=== PATIENT | female | born 1950 | race Caucasian/White ===

== ENCOUNTER → 2016-08-13 | Outpatient (CLI) | payer OTHER ==
[~2016-08-13] VITALS: Ht 160 cm; Wt 58.1 kg
[~2016-08-13] MED LIST: ABILIFY15 MG PO; ALLER-EASE180 MG PO; AMLODIPINE BESY10 MG PO; ASPIRIN EC81 M1 PO; BACTROBAN NASAL1 GM; CALCIUM 600 +1 EA11; CALCIUM 600 +1 EAC1 PO; CALCIUM 600 MG1 EAC3 PO; DEPAKOTE ER500 MG PO; DESYREL50 MG PO; FLEXERIL PO; FLONASE 0.05%50 MCG; IBUPROFEN 600600 M1 PO; LEVOTHYROXINE0.05 MG PO; LEXAPRO20 MG PO; LUNESTA1 MG; LUNESTA3 MG PO; MEDROLDOSEPACK PO; MELOXICAM7.5 MG PO; MYRBETRIQ25 MG PO; NABUMETONE 500500 M1 PO; NEXIUM40 MG PO; OXYCODONE HCL15 MG PO; PHENERGAN 25 MG25 M1 PO; PRENATAL PLUS1 EAC4 PO; PRENATAL PO; PROAIR HFA8.5 GM IH; PROTONIX40 M1 PO; ROXICODONE15 M1 PO; TIZANIDINE HCL4 M1 PO; TRUSOPT5 ML OP; VESICARE 5 MG TA5 M1 PO; VESICARE10 M1 PO; VISTARIL PO; VOLTAREN GEL 1100 G1 TOP; VOLTAREN GEL 1100 GM TOP; WELLBUTRIN SR150 MG PO; WELLBUTRIN XL150 M1 PO; WELLBUTRIN XL150 MG PO; ZOFRAN4 MG PO
--- NOTE | ~2016-08-13 | HPC ---
[facility] [place] [address] PAIN MANAGEMENT CONSULTATION Name: NAIMA ROCHE Room #: REG [facility].#: [id number] Admission: 08/13/16 Attend Phys: Toan Solorzano DO Discharge: Date of : 50 Report #: [id number] THIS REPORT FOR: //name// CC: Toan Chadwick MD DATE OF SERVICE: 08/13/2016 DATE OF SERVICE: 08/13/2016. CHIEF COMPLAINT: Low back pain, bilateral lower extremity pain. HISTORY OF PRESENT ILLNESS: As you know, patient is a very pleasant 65-year-old female who returns today in followup visit reporting pain scores of approximately 6/10. Stated pain is exacerbated with standing and cooking, lying down, improves with medications and rest. The patient provides a significant history of multiple deaths in the family of late. Most recent was a brother who last Friday. She is somewhat depressed and believes this is exacerbating her symptoms to some degree. She returns today in followup visit, denying side effects to medication, wishing to continue therapy. As you are aware, we have reduced the patient's dose from last visit to comply more consistently with the CDC guidelines. The patient has noted really no change in her pain levels. She returns today requesting refill on medication. ALLERGIES: BENADRYL, TETANUS, ALLOPURINOL. CURRENT MEDICATIONS: Oxycodone 15 mg every 6 hours p.r.n. for pain, bupropion 150 mg once a day, Trusopt one drop each eye per day, omeprazole 40 mg per day, levothyroxine 50 mcg per day, promethazine 25 mg 3 times a day, tizanidine 4 mg 3 times a day as needed, escitalopram 20 mg per day, calcium carbonate 1 tab per day, amlodipine 10 mg per day, Depakote 500 mg once a day, albuterol 2 puffs q. 4 hours, Abilify 15 mg per day, aspirin 81 mg per day. SOCIAL HISTORY: The patient denies tobacco, alcohol, IV or illicit drug use. She is living independently. She is unaccompanied today. IMAGING: No new imaging available. PHYSICAL EXAMINATION: VITAL SIGNS: Blood pressure 166/81, pulse 86, respiratory rate 20, unlabored. The patient is 100% on room air. Height 5 feet 3 inches tall, weight 128 pounds, BMI calculated 22.7. GENERAL: Well developed, well nourished, well hydrated 65-year-old female, appearing her stated age, placing current pain score 6/10. HEENT: Normocephalic, atraumatic. Pupils equal, round, reactive to light. [facility] [address] [place] [address] PAIN MANAGEMENT CONSULTATION Name: NAIMA ROCHE Room #: REG [facility]#: [id number] Admission: 08/13/16 Attend Phys: Toan Solorzano DO Discharge: Date of : 50 Report #: [id number] Extraocular muscles are intact. Upper and lower dentures in place. EXTREMITIES: Show no clubbing, no cyanosis, no edema. MUSCULOSKELETAL: Lower extremity strength equal and symmetrical 5/5. Seated straight leg raising negative. Supine straight leg raising negative. Roshan's test negative. Modified Gaenslen's positive for axial back. ASSESSMENT: 1. Lumbosacral spondylosis without radiculopathy. 2. Lumbar degeneration. 3. Myofascial pain. 4. Chronic intractable pain. PLAN: 1. The patient has returned today in followup visit indicating pain levels of about 6/10. She has noted no real major change in her pain levels with the reduction in medication therapy. She wishes to continue current medical therapy at this time. She is within the compliance of the CDC guidelines of 90 morphine equivalents at this time. I recommend she continue this therapy and we will adjust as necessary. 2. The patient was provided prescription oxycodone 15 mg dose 1 tab p.o. q. 6 hours p.r.n. for pain, #120, releases of today, 4 weeks from today, 8 weeks from today, 3 months' worth of medication. 3. The patient and I did have a long discussion about recent in her family. It is sad to see the patient is suffering so with the emotional issues. I believe that once she is through this grieving process, her pain will improve. We will be there to support throughout this time. We will see her back in 3 months or earlier if she needs to discuss further. By: 1610 [id number] Toan Solorzano, /nt
[2016-08-13 10:47] VITALS: BP 166/81
== END ==
LOC: PAIN 07:06
DX: M47.27 Other spondylosis with radiculopathy, lumbosacral region (principal); G31.89 Other specified degenerative diseases of nervous system; M79.1 Myalgia; G89.29 Other chronic pain; I10 Essential (primary) hypertension; Z87.891 Personal history of nicotine dependence; F32.89 Other specified depressive episodes

== ENCOUNTER → 2016-11-05 | Outpatient (CLI) | payer OTHER ==
[~2016-11-05] VITALS: Ht 160 cm; Wt 59.9 kg
[2016-11-05 10:45] VITALS: BP 151/78
== END | disposition home or self-care (01) ==
LOC: PAIN 07:14
DX: M51.36 Other intervertebral disc degeneration, lumbar region (principal); M47.27 Other spondylosis with radiculopathy, lumbosacral region; M79.1 Myalgia; G89.29 Other chronic pain; I10 Essential (primary) hypertension; K21.9 Gastro-esophageal reflux disease without esophagitis; E03.9 Hypothyroidism, unspecified; H40.89 Other specified glaucoma; F31.89 Other bipolar disorder; Z87.891 Personal history of nicotine dependence; Z98.890 Other specified postprocedural states; Z88.8 Allergy status to other drugs, medicaments and biological substances; Z79.899 Other long term (current) drug therapy

== ENCOUNTER → 2017-01-28 | Outpatient (CLI) | payer OTHER ==
[~2017-01-28] VITALS: Ht 160 cm; Wt 60.3 kg
[~2017-01-28] MED LIST changes: +LUMIGAN2.5 M1 OPHTHALMIC; +SIMBRINZA 1%-0.28 ML OPHTHALMIC
--- NOTE | ~2017-01-28 | HPC ---
[facility] [address] [place] [address] PAIN MANAGEMENT CONSULTATION Name: NAIMA ROCHE Room #: REG [facility]#: [id number] Admission: 01/28/17 Attend Phys: Toan Solorzano DO Discharge: Date of : 50 Report #: [id number] THIS REPORT FOR: //name// CC: Toan Chadwick MD DATE OF SERVICE: 01/28/2017 REFERRING PHYSICIAN: Kit Chadwick MD CHIEF COMPLAINT: Low back pain, bilateral lower extremity pain. HISTORY OF PRESENT ILLNESS: As you know, the patient is a very pleasant 66-year-old female who returns today in followup visit for medication management. The patient feels medications are working beneficially for pain control. She indicates pain today at a level of 8-9/10, states pain is exacerbated with standing, cooking, sitting and lying down, improves with medications. Despite this elevated pain level of 7-8/10, she believes medications are working beneficially and wishes to continue the therapy as currently prescribed. She returns for refill of medications for the next 3 months. ALLERGIES: BENADRYL, TETANUS, and ALLOPURINOL. CURRENT MEDICATIONS: See extensive list in chart. SOCIAL HISTORY: The patient denies tobacco, alcohol, IV or illicit drug use. She lives independently. She is unaccompanied today. IMAGING: No new imaging available. PHYSICAL EXAMINATION: VITAL SIGNS: Blood pressure 159/64, pulse 88, respiratory rate 20 and unlabored, the patient is 98% on room air, height 5 feet 3 inches tall, weight 133 pounds, and BMI calculated 23.6. GENERAL: Well-developed, well-nourished, well-hydrated 66-year-old female, appearing her stated age, she is placing current pain score at 7-8/10. HEENT: Normocephalic, atraumatic. Pupils are equal, round, and reactive to light. Extraocular muscles are intact. Sclerae nonicteric without injection. NEUROLOGIC: Cranial nerves 2-12 are grossly intact. Speech is fluent. The patient deemed a good historian. LUNGS: Clear. No wheeze, rhonchi, or rales. CARDIOVASCULAR: Regular. No appreciable gallop or rub. ABDOMEN: Soft, nontender, and nondistended. EXTREMITIES: Show no clubbing, no cyanosis, and no edema. [address] [address] PAIN MANAGEMENT CONSULTATION Name: NIAMA ROCHE Room #: REG [facility] Cele#: [id number] Admission: 01/28/17 Attend Phys: Toan Solorzano DO Discharge: Date of : 50 Report #: [id number] MUSCULOSKELETAL: Seated straight leg raising negative. Supine straight leg raising negative. Lilian's test negative. Modified Gaenslen's positive for axial low back pain. ASSESSMENT: 1. Lumbosacral spondylosis without radiculopathy. 2. Lumbar degeneration. 3. Myofascial pain. 4. Chronic intractable pain. PLAN: 1. The patient returns today in followup visit for continuation of medication therapy. The patient feels medications are working beneficially for pain control. The patient and I had a long discussion today about the use of her medications. She has been appropriate with the medications, she has not called for early refills, she has not requested increases in therapy. She has been very appropriate and states that her symptoms are improved significantly enough to where she can go about activities of daily living despite this level of 7-8/10 pain reported today. She returns today requesting refill on therapy. 2. The patient was provided a prescription of oxycodone 15 mg dose 1 tab p.o. q.6 hours p.r.n. for pain, I have given the patient #120, release dates of today, 4 weeks from today, 8 weeks from today, 3 months' worth of medication. 3. The patient will return to our clinic in 3 months for medication therapy and discuss other options for treatment if needed including interventional treatments and surgical options. <ELECTRONICALLY SIGNED> By: Toan Solorzano DO 01/29/17 0806 [id number] [id number] Toan Solorzano DO /nt
[2017-01-28 11:07] VITALS: BP 159/64
== END ==
LOC: PAIN 07:35
DX: M47.897 Other spondylosis, lumbosacral region (principal); M47.896 Other spondylosis, lumbar region; M79.1 Myalgia; G89.4 Chronic pain syndrome

== ENCOUNTER → 2017-04-22 | Outpatient (CLI) | payer OTHER ==
[~2017-04-22] VITALS: Ht 160 cm; Wt 58.3 kg
[~2017-04-22] MED LIST changes: +COZAAR 50 MG TA50 M2 PO; -LEVOTHYROXINE0.05 MG PO; +PERCOCET 7.5-31 EACH PO; +SIMBRINZA 1%-0.28 ML; +SYNTHROID50 MCG PO; +TERBINAFINE HC250 MG PO; +TRAVATAN Z2.5 ML OPHTHALMIC; +VESICARE 5 MG TA5 MG PO; +VYZULTA5 ML
--- NOTE | ~2017-04-22 | HPC ---
[facility] [address] [place] [address] PAIN MANAGEMENT CONSULTATION Name: NAIMA ROCHE Room #: REG [facility]#: [id number] Admission: 04/22/17 Attend Phys: Toan Solorzano DO Discharge: Date of : 50 Report #: [id number] THIS REPORT FOR: //name// CC: Toan Chadwick MD DATE OF SERVICE: 04/22/2017 REFERRING PHYSICIAN: Kit Chadwick MD CHIEF COMPLAINT: Low back pain, bilateral lower extremity pain. HISTORY OF PRESENT ILLNESS: As you know, the patient is a very pleasant 66-year-old female who returns today in followup visit for medication management. She indicates that she is doing better overall as she has recently received help from her insurer to gain an mental health assistant to help on daily activities at home. The patient has returned today in followup visit stating pain is a level of around 6/10, which is fairly typical for her. She states the pain is chronic in nature, throbbing in sensation, exacerbated with standing, cooking, sitting and lying down, improves with medications, heat, cold compresses and rest. She returns today in followup visit requesting refill of medications. ALLERGIES: BENADRYL, TETANUS, and ALLOPURINOL. CURRENT MEDICATIONS: See extensive list in chart. SOCIAL HISTORY: The patient denies tobacco, alcohol, IV or illicit drug use. She is living at a neighboring facility. She is unaccompanied today. IMAGING: No new imaging available. PHYSICAL EXAMINATION: VITAL SIGNS: Blood pressure 148/70, pulse 82, respiratory rate 16 and unlabored, the patient is 96% on room air, height 5 feet 3 inches tall, weight 128.6 pounds, and BMI calculated 22.8. GENERAL: Well-developed, well-nourished, well-hydrated 66-year-old female, she appears her stated age, placing current pain score at around 6/10. HEENT: Normocephalic, atraumatic. Pupils are equal, round, and reactive to light. Extraocular muscles are intact. EXTREMITIES: Show no clubbing, no cyanosis, and no edema. MUSCULOSKELETAL: Seated straight leg raising negative. Supine straight leg raising negative. Roshan's test negative. Modified Gaenslen's positive for axial low back pain. Gait, normal stance, slightly forward flexed lumbar spine, loss of lordotic curvature. Muscle bulk and tone equal and symmetrical in lower extremities. [address] [address] PAIN MANAGEMENT CONSULTATION Name: NAIMA ROCHE Room #: REG [facility]#: [id number] Admission: 04/22/17 Attend Phys: Toan Solorzano DO Discharge: Date of : 50 Report #: [id number] ASSESSMENT: 1. Lumbosacral spondylosis without radiculopathy. 2. Lumbar degeneration. 3. Myofascial pain. 4. Chronic intractable pain. PLAN: 1. The patient returns today in followup visit indicating good efficacy with medication management despite the fact that she is reporting pain score of 6/10. She states the 6/10 is fairly typical for her when she is on medications. When she is not on medications, this could be as high as 10/10. She returns today requesting refill on medications at current dosing. 2. The patient was provided a prescription of oxycodone IR 15 mg dose 1 tab every 6 hours p.r.n. for pain, I have provided #120, release dates of today, 4 weeks from today, 8 weeks from today, 3 months' worth of medication. 3. The patient was submitted to a buccal drug screen. The patient will undergo the screening today and can contact our clinic in approximately 1 week for the findings. We are using these random drug screens to monitor the patients as part of our monitoring program. The patient was also noted to have no concerning entries in [employer], the opioid tracking system in the [facility]. 4. The patient will return to our clinic in 3 months. <ELECTRONICALLY SIGNED> By: Toan Solorzano DO 04/23/17 0739 [id number] [id number] Toan Solorzano DO /nt
[2017-04-22 10:44] VITALS: BP 148/70
== END ==
LOC: PAIN 07:05
DX: M47.817 Spondylosis without myelopathy or radiculopathy, lumbosacral region (principal); M47.896 Other spondylosis, lumbar region; G89.29 Other chronic pain; M79.1 Myalgia

== ENCOUNTER → 2017-07-10 | Outpatient (CLI) | payer OTHER | LOC: ULTRA 05-26 13:10 | DX: I70.8 Atherosclerosis of other arteries (principal); R09.89 Other specified symptoms and signs involving the circulatory and respiratory systems ==

== ENCOUNTER → 2017-07-15 | Outpatient (CLI) | payer OTHER ==
[~2017-07-15] VITALS: Ht 160 cm; Wt 60.3 kg
[~2017-07-15] MED LIST changes: -PERCOCET 7.5-31 EACH PO; -SIMBRINZA 1%-0.28 ML; -VYZULTA5 ML
--- NOTE | ~2017-07-15 | HPC ---
[facility] [address] [place] [address] PAIN MANAGEMENT CONSULTATION Name: NAIMA ROCHE Room #: REG [facility]#: [id number] Admission: 07/15/17 Attend Phys: Toan Solorzano DO Discharge: Date of : 50 Report #: [id number] THIS REPORT FOR: //name// CC: Toan TIMMONS DATE OF SERVICE: 07/15/2017 REFERRING PHYSICIAN: Eulalio Liriano MD CHIEF COMPLAINT: Low back pain, bilateral lower extremity pain. HISTORY OF PRESENT ILLNESS: As you know, the patient is a very pleasant 66-year-old female who returns today in followup visit for medication management. The patient indicates pain level today of approximately 0/10. She indicates pain when present is exacerbated with standing, cooking, sitting and lying down, improves with medications. She describes the pain as chronic and throbbing in sensation. She returns today requesting refill on medication in hopes of continuing analgesic benefit. She is denying any side effects to the therapy and feels are working beneficially. She returns for 3 months' worth of medication. ALLERGIES: BENADRYL, TETANUS, ALLOPURINOL. CURRENT MEDICATIONS: See the extensive list in chart. SOCIAL HISTORY: The patient denies tobacco, alcohol, IV or illicit drug use. 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 She is unaccompanied today. IMAGING: No new imaging available. PQRS: The patient has known osteoarthritis. No rheumatoid arthritis. Pain intensity is listed at 0/10 today. She is not a fall risk, has not had a fall in the past 3 months. She is not on blood thinners. She does take medication for hypertension. She has been on opioids for greater than 6 months. She is at moderate risk for opioid abuse. FUNCTIONAL ASSESSMENT: Completed again today indicating moderate interference. PHYSICAL EXAMINATION: VITAL SIGNS: Blood pressure 136/73, pulse 78, respiratory rate 18, unlabored. The patient is 100% on room air. Height 5 feet 3 inch tall, weight 133 pounds, BMI calculated 23.6. [facility] [address] [address] PAIN MANAGEMENT CONSULTATION Name: MELCHORNAIMA L Room #: REG [facility]#: [id number] Admission: 07/15/17 Attend Phys: Tona Solorzano DO Discharge: Date of : 50 Report #: [id number] GENERAL: Well-developed, well-nourished, well-hydrated 66-year-old female, appears older than stated age, placing current pain score around 0/10. HEENT: Normocephalic, atraumatic. Pupils equal, round, reactive to light. Extraocular muscles are intact. Sclerae nonicteric without injection. NEUROLOGIC: Speech fluent. The patient deemed a good historian. LUNGS: Clear, no wheeze, rhonchi or rales. CARDIOVASCULAR: Regular. No appreciable gallop or rub. ABDOMEN: Soft, nontender. EXTREMITIES: Show no clubbing, no cyanosis, no edema. MUSCULOSKELETAL: Seated straight leg raising negative. Supine straight leg raising negative. Lilian test negative. Modified Gaenslen's positive for axial low back pain. Gait appears normal. Muscle bulk and tone equal and symmetrical in lower extremities. Babinski is normal. Ankle clonus is normal. ASSESSMENT: 1. Lumbosacral spondylosis without radiculopathy. 2. Lumbar degeneration. 3. Myofascial pain. 4. Chronic intractable pain. PLAN: 1. The patient returns today in followup visit for medication management. She feels medications are working beneficially for pain control. The patient is denying side effects of somnolence, decreased mental acuity, disorientation, confusion, mental slowing or constipation with use of medication. She wishes to continue therapy as directed. 2. The patient was provided an opioid treatment contract with [facility]. The patient's opioid contract last signed in 2015. She has agreed to re-sign the contract to maintain the medication management at current dosing. 3. The patient was provided prescription of oxycodone immediate release 15 mg dose 1 tab every 6 hours p.r.n. for pain. We tried the patient on long-acting medication, but due to cost factors and availability, the patient cannot remain on a long-acting opioid. We had to shift her back to immediate release medication, for which she is taking 4 tabs a day. The total of her medication is 90 morphine equivalents equal to the highest dose CDC recommends under the new guidelines. I advised the patient that this may ultimately need to be adjusted based on guideline changes which may occur as early as the next couple of months. If we have to make adjustments, we will do this at her next appointment. 4. The patient was provided prescription of oxycodone 15 mg dose 1 tab 4 times a day, #120, releases of today, 4 weeks from today, 8 weeks from today. [facility] [address] [place] [address] PAIN MANAGEMENT CONSULTATION Name: NAIMA ROCHE Room #: REG [facility] Cele#: [id number] Admission: 07/15/17 Attend Phys: Toan Solorzano DO Discharge: Date of : 50 Report #: [id number] 5. We will see the patient back in followup visit in 3 months or earlier if adjustments need to be made to address CDC's recommended guidelines. <ELECTRONICALLY SIGNED> By: Toan Solorzano DO 07/16/17 0737 1325 1456 Toan Solorzano DO /nt
[2017-07-15 10:52] VITALS: BP 136/73
== END ==
LOC: PAIN 07:35
DX: M51.36 Other intervertebral disc degeneration, lumbar region (principal); M47.817 Spondylosis without myelopathy or radiculopathy, lumbosacral region; G89.4 Chronic pain syndrome; M79.1 Myalgia

== ENCOUNTER → 2017-10-07 | Outpatient (CLI) | payer OTHER ==
[~2017-10-07] VITALS: Ht 160 cm; Wt 58.6 kg
[~2017-10-07] MED LIST changes: +SIMBRINZA 1%-0.28 ML
--- NOTE | ~2017-10-07 | HPC ---
[facility] [address] [place] [address] PAIN MANAGEMENT CONSULTATION Name: NAIMA ROCHE Room #: REG [facility].#: [id number] Admission: 10/07/17 Attend Phys: Toan Solorzano DO Discharge: Date of : 50 Report #: [id number] THIS REPORT FOR: //name// CC: Toan Liriano MD DATE OF SERVICE: 10/07/2017 REFERRING PHYSICIAN: Eulalio Liriano MD CHIEF COMPLAINT: Low back pain, bilateral lower extremity pain with paresthesias. HISTORY OF PRESENT ILLNESS: As you know, the patient is a very pleasant 66-year-old female who returns today in followup visit for medication management. She is placing her pain score today around 2/10. She gives a pain impact score 36/70, moderate interference due to ongoing pain issues. She states the medications provided do give analgesic benefit enough that she go about her activities of daily living. She returns to review the recent drug screen obtained at our last visit as well as to obtain refill of medications for ongoing pain issues. The patient does provide information today about a recent loss in her family, apparently her mother has recently for which the patient was intimately involved in her daily care, she states that she has "been quite bored of late." She states that she is trying to cope with the of her mother, which has exacerbated some of her depression. She returns today requesting refill on medications. ALLERGIES: BENADRYL, TETANUS, and ALLOPURINOL. CURRENT MEDICATIONS: Oxycodone IR 15 mg dose 3-4 times a day p.r.n. pain, Terbinafine 250 mg once a day, VESIcare 5 mg per day, losartan 50 mg per day, Travatan one drop each eye per day, Simbrinza one drop twice a day, bupropion 150 mg twice a day, omeprazole 40 mg per day, levothyroxine 50 mcg per day, tizanidine 4 mg p.o. q.6 hours p.r.n. muscle spasms, escitalopram 20 mg per day, calcium carbonate 1 tab per day, amlodipine 10 mg per day, Depakote ER 500 mg once a day, Abilify 15 mg per day, aspirin 81 mg per day. SOCIAL HISTORY: The patient denies tobacco, alcohol, IV or illicit drug use. She is unaccompanied today. She is retired. IMAGING: No new imaging available. PQRS: The patient has osteoarthritis of the shoulders, low back, and bilateral hips. No rheumatoid arthritis. Pain intensity today rated at 2/10. She is not a fall risk, has not had a fall in last 3 months. She is treated for [address] [address] PAIN MANAGEMENT CONSULTATION Name: NAIMA ROCHE [place] [id number] Admission: 10/07/17 Attend Phys: Toan Solorzano DO Discharge: Date of : 50 Report #: [id number] hypertension, but is not on blood thinners. She has been on opioids for greater than 6 months and is under contract with [facility]. She is a moderate risk for opioid abuse. Functional assessment 36/70, moderate. PHYSICAL EXAMINATION: VITAL SIGNS: Blood pressure 154/77, pulse 88, respiratory rate 16 and unlabored, the patient is 100% on room air, height 5 feet 3 inch tall, weight 129.2 pounds, and BMI calculated 22.9. GENERAL: Well-developed, well-nourished, well-hydrated 66-year-old female, she appears stated age, placing current pain score at 2/10. HEENT: Normocephalic, atraumatic. Pupils are equal, round, and reactive to light. EXTREMITIES: Show no clubbing, no cyanosis, and no edema. There is noted bilateral onychomycoses of the feet. MUSCULOSKELETAL: Seated straight leg raising negative. Supine straight leg raising negative. Roshan's test negative. Modified Gaenslen's positive for axial low back pain. Gait appears normal. Muscle bulk and tone equal and symmetrical in lower extremities. Ankle clonus negative. Babinski is negative. Lumbar provocation testing is met with increased pain, axial in nature. ASSESSMENT: 1. Lumbosacral spondylosis without radiculopathy. 2. Lumbar degeneration. 3. Myofascial pain. 4. Chronic intractable pain. 5. Opioid dependency. PLAN: 1. The patient returns today in followup visit where she is describing some increasing depression with recent loss of her mother. She states she is coping well with this loss, it was an expected that was not something acute. The patient was prepared for her mother's demise. As you are aware, the patient has been taking care of her mother for a very long period of time. She states that she is doing well and does not need any assistance or counseling. She states she is dealing well with the of her mother, no sequelae. I did advise the patient if she notes any increased depression, contact her psychiatrist who could potentially adjust her medications. They could also discuss during those conversations coping mechanisms that are related medications and more cognitive behavioral type treatments. 2. The patient has requested refill of her oxycodone, she takes 15 mg, no more than 4 times a day. She is at the highest level of opioid medication recommended by CDC, we have made little or no changes in medication since we initially met her years ago. She states the medications are working well, she is having no side effects to therapy. We have recommended she continue this therapy, she returns for refills today. 3. The patient was provided a prescription of oxycodone 15 mg dose 1 tab p.o. [facility] [address] [place] [address] PAIN MANAGEMENT CONSULTATION Name: NAIMA ROCHE Room #: [facility].#: [id number] Admission: 10/07/17 Attend Phys: Toan Solorzano DO Discharge: Date of : 50 Report #: [id number] q.6 hours p.r.n., she was given #120, release dates of today, 4 weeks from today, 8 weeks from today, 3 months' worth of medication. 4. We have reviewed the patient's recent drug screen that was obtained 04/23/2017, it does show positive for oxycodone and metabolites to oxycodone, there are no other noted substances and it is an appropriate drug screen. 5. The patient will return to our clinic in 3 months for medication management. By: 0734 1134 Toan Solorzano, DO /nt
[2017-10-07 11:14] VITALS: BP 154/77
== END ==
LOC: PAIN 07:31
DX: M47.817 Spondylosis without myelopathy or radiculopathy, lumbosacral region (principal); M51.36 Other intervertebral disc degeneration, lumbar region; M79.1 Myalgia; G89.4 Chronic pain syndrome; F11.20 Opioid dependence, uncomplicated

== ENCOUNTER → 2018-03-24 | Outpatient (CLI) | payer OTHER ==
[~2018-03-24] VITALS: Ht 160 cm; Wt 58.9 kg
[~2018-03-24] MED LIST changes: +PERCOCET 7.5-31 EACH PO; +VYZULTA5 ML
--- NOTE | ~2018-03-24 | HPC ---
[facility] [place] [address] PAIN MANAGEMENT CONSULTATION Name: NAIMA ROCHE [facility] #: [facility] [id number] Admission: 03/24/18 Attend Phys: Renea Fernandez Discharge: Date of : 50 Report #: [id number] THIS REPORT FOR: //name// CC: Renea Liriano DATE OF SERVICE: 03/24/2018 CHIEF COMPLAINT: Low back pain with bilateral lower extremity pain and paresthesias. HISTORY OF PRESENT ILLNESS: This is a very pleasant 67-year-old female who returned to the followup visit today for refill of her medication management. She tells me that her pain score is 10/10 today, but this is a bad day. She has been better recently that has not been as good as her previous pain control when we had her on oxycodone 15 mg. The patient recently decreased per the patient's choice because she wanted to come every 3 months according to the CDC guidelines, the 15 mg of oxycodone would have made her come every 2 months. The patient wanted to remain at every 3-month intervals for her medication refills and elected to decrease her pain medicine to Percocet 7.5/325. The patient still tells me that she is doing okay just not as good as before, but willing to continue on her current medication. She does tell me that her pain is in her low back, throbbing pain, worse when she is standing, sitting and lying down. She is quite upset today. Person that lives at the same facility she does this morning and she has known her for quite a long time, so the patient is very upset about that too and she said that may be why I also have increase in pain. I was awoken early this morning with that news. The patient tells me that she denies any constipation or daytime sleepiness with this medicine too. ALLERGIES: BENADRYL, XANAX, TETANUS AND DIPHTHERIA TOXOID, ALLOPURINOL. CURRENT LIST OF MEDICATIONS: Oxycodone 7.5/325 up to 4 tablets a day, Vyzulta drops at bedtime, Terbinafine 250 mg 7 days every other month, VESIcare 5 mg daily, Cozaar 50 mg daily, Simbrinza eye drops twice a day, Wellbutrin-XL 150 daily, Nexium 40 mg daily, Synthroid 50 mcg every other day, tizanidine 4 mg every 6 hours, Lexapro 30 mg daily, Caltrate daily, amlodipine 10 mg daily, Depakote ER 500 mg daily, Abilify 15 mg daily and aspirin 81 mg daily. PQRS: 1. The patient has a history of osteoarthritis in her shoulders, back and hips bilaterally. Denies rheumatoid arthritis. 2. Height is 5 feet 3 inches, weight is 129.8 pounds, BMI is 23. 3. Vital signs: Blood pressure 158/91, pulse is 93, respirations 14, oxygen sat 100%. 4. Pain score is 10/10. [address] [address] PAIN MANAGEMENT CONSULTATION Name: MELCHORNAIMA L Room #: REG CLPeggy Oakley#: [id number] Admission: 03/24/18 Attend Phys: Renea Fernandez Discharge: Date of : 50 Report #: [id number] 5. The patient denies dizziness, does not need help walking or standing. Has not fallen in the last 3 months. 6. The patient denies dizziness, but does take antihypertensive medicines. 7. Opioid therapy is greater than 6 weeks; therefore, an opioid signed contract is on the chart. 8. Her risk assessment tool is moderate and her functional assessment is 36/70. 9. Recreational drug use, she denies. She is a former smoker and does not drink alcohol. We did check the [place] prescription monitoring system. The patient is filling appropriate from Dr. Toan Solorzano and no aberrant behavior noted. The patient tells me she does safeguard her medicines. PHYSICAL EXAMINATION: GENERAL: This is a well-developed, well-nourished, well-hydrated 67-year-old female who appears her stated age, placing her pain score today at 10/10. HEENT: Normocephalic, atraumatic. Pupils equal, round and reactive to light. EXTREMITIES: No clubbing, no cyanosis, no edema. MUSCULOSKELETAL: Seated straight leg raising negative. Gait appears normal. Lower extremity strength judged to be 5/5 in all major muscle groups. ASSESSMENT: 1. Lumbosacral spondylosis without radiculopathy. 2. Lumbar degeneration. 3. Myofascial pain. 4. Chronic intractable pain. 5. Complicated medical therapy using scheduled medicines. We reviewed the fact that opiate medications are being used to provide analgesia adequate to support activities of daily living, not attempting to achieve a specific pain score on the 0-10 Visual Analog Scale. The current opiate medications are providing sufficient analgesia to allow the patient to participate in activities of daily living. The patient is not exhibiting any aberrant behavior suggestive of drug diversion. The patient is not having any adverse reactions to medications. The patient is not suffering from daytime somnolence or mental acuity changes. The patient is managing opiate-induced constipation with appropriate ulgs-cuk-hzapxin agents and dietary considerations. The patient was counseled on concern for caution with operating a motor vehicle while using opiate medications. A physical exam was performed and the patient's functional status was evaluated. All patients with back pain were advised against the bed rest greater than 4 days and were advised to return to normal activities. Pain score assessment was noted and the treatment plan was reviewed with the patient. All current medications, both prescribed and OTC were reviewed and reconciled on the electronic medical record. Tobacco screening was accomplished and smoking cessation was advised when indicated. BMI was noted and diet/exercise modification was recommended for all patients following outside normal [facility] [address] [place] [address] PAIN MANAGEMENT CONSULTATION Name: NAIMA ROCHE Room #: REG [facility].#: [id number] Admission: 03/24/18 Attend Phys: Renea Fernandez Discharge: Date of : 50 Report #: [id number] parameters. I reviewed with the patient today their responsibilities to safeguard prescription medications, reviewed their responsibility to utilize medications only as prescribed by the physician. They are to seek and receive pain medications only from 1 physician group ([facility]). They are to use 1 pharmacy and keep the clinic informed if they change pharmacies. Their responsibilities include making followup visits in a timely fashion and to avoid abrupt discontinuation of medication usage. Their responsibilities further include bringing their medications (bottles from the pharmacy with residual pills) to the visit for possible confirmation of pill counts and the patient understands it is their responsibility to submit to random drug screens to ensure both that the medications prescribed are present, and that no other controlled substances are present. All prescriptions provided today were generated electronically. PLAN: 1. The patient has returned today for a followup visit for her opioid medications. She tells me that she has been doing fairly well from a decrease of her oxycodone 15 mg to oxycodone 7.5/325. The patient tells me her pain score is a little higher today, not as well controlled as it was on her previous dose, but still wishes to do on this dose because she wishes to come every 3 months to see the doctor, not every 2 months. She tells me that it is difficult getting a ride from her njwsgrxq-zs-qfg if she had to come every 2 months. She tells me she is still active and I am going about her normal activities of daily living. Just sometimes her pain is worse than others. 2. The patient is provided a script for 7.5/325, #120 to be released today, 4-week and 8-week of her medications. 3. The patient will return in 3 months. The patient is agreeable with this plan of care. 4. The patient seen in collaboration today with Dr. Toan Solorzano. <ELECTRONICALLY SIGNED> By: Renea Fernandez 03/25/18 0918 [id number] [id number] Renea Fernandez /nt
[2018-03-24 10:40] VITALS: BP 158/91
== END ==
LOC: PAIN 08:51
DX: M47.27 Other spondylosis with radiculopathy, lumbosacral region (principal); M51.36 Other intervertebral disc degeneration, lumbar region; G89.4 Chronic pain syndrome

== ENCOUNTER → 2018-06-09 | Outpatient (CLI) | payer OTHER ==
[~2018-06-09] VITALS: Ht 160 cm; Wt 59.4 kg
[~2018-06-09] MED LIST changes: +COZAAR 50 MG TA50 M1 PO; -COZAAR 50 MG TA50 M2 PO; +RHOPRESSA2.5 ML OPHTHALMIC
[2018-06-09 13:06] VITALS: BP 162/81
--- NOTE | 2018-06-09 13:17 | NUR ---
Pain Clinic Assessment: 1. History of Osteoarthritis: Not Applicable History of Rheumatoid Arthritis: Not Applicable 2. Height: 5 ft. 3 in. 160.0 cm. Weight: 131.0 lb. oz. 59.421 kg. Patient's BMI: 23.2 3. Vital Signs: BP: 162/81 Pulse: 95 Resp: 16 Temp: 02 Sat: 100 ECG Mon: 4. Pain Intensity: 1-now,took med, avg 6 5. Fall Risk: Dizziness: N Needs help standing or walking: N Fallen in the last 3 months: N Fall risk comments: 6. Patient on Blood Thinner: None 7. History of Hypertension: Y 8. Opioid Therapy greater than 6 weeks: Y Opiate Contract Signed: 07/15/17 9. Risk Assessment Tool Provided: MODERATE RISK 07/26 10. Functional Assessment Tool: 11. Recreational Drug Use: Never Drug Type: Tobacco Use: Former Smoker Tobacco Type: Amount or Packs/day: How Many Years: Alcohol Use: No Frequency: Quant:
--- NOTE | 2018-06-11 14:15 | HPC ---
[facility] [place] [address] PAIN MANAGEMENT CONSULTATION Name: MELCHOR,NAIMA L [facility] [id number] Admission: 06/09/18 ������������������ Attend Phys: Renea Fernandez Discharge: ������������������ Date of : 50 Report #: [id number] THIS REPORT FOR: //name// CC: Renea Liriano DATE OF SERVICE: 06/09/2018 CHIEF COMPLAINT: Low back pain with bilateral lower extremity pain and paresthesias. HISTORY OF PRESENT ILLNESS: This is a very pleasant 67-year-old female who returns to the pain clinic today for refill of her medication management. She tells me that her pain is overall good today, it is 1/10 with her pain medications. Her average pain score is 6/10. She tells me that she does have some pain in her lower back, in her posterior legs, but her muscle relaxants help with her leg pain. She tells me that her pain is worse with standing. Last night, she was cooking and she could tell an increase in her leg pain while she was cooking in the kitchen. She continues to state that the medication is very helpful in relieving her pain and would like a refill today. ALLERGIES: BENADRYL, XANAX, TETANUS, DIPHTHERIA AND TYPHOID, ALLOPURINOL. CURRENT MEDICATIONS: Rhopressa 2.5 drops a day ophthalmic, oxycodone 7.5/325 q.i.d., terbinafine 250 mg 7 days every other month, Cozaar 100 mg daily, bupropion 150 mg daily, Nexium 40 mg daily, Synthroid 50 mcg every other day, tizanidine 4 mg every 6 hours, Lexapro 30 mg daily, Caltrate daily, amlodipine 10 mg daily, Depakote ER 500 mg at bedtime, Abilify 15 mg daily, aspirin 81 mg daily. PQRS: 1. The patient has a history of osteoarthritis in her shoulders, back, hips bilaterally. She denies rheumatoid arthritis. 2. Height is 5 feet 3 inches, weight is 131. BMI is 23. 3. Vital signs: Blood pressure 162/81, pulse is 95, respirations 16, oxygen sat is 100. 4. Pain score is 1/10 currently and average of 6/10. 5. Fall risk: She denies dizziness, does not need help walking or standing, has not fallen in the last 3 months. 6. The patient is not on any blood thinners and does take antihypertensive medicines. 7. Opioid therapy is greater than 6 weeks, therefore, an opioid signed contract is on the chart. 8. Risk assessment is moderate. Her functional assessment is 36/70. 9. Recreational drug use, she denies. She is a former smoker and does not drink alcohol. We did check the prescription monitoring system[place] [address] PAIN MANAGEMENT CONSULTATION Name: NAIMA ROCHE Room #: REG Peggy Oakley#: [id number] Admission: 06/09/18 ������������������ Attend Phys: Renea Fernandez Discharge: ������������������ Date of : 50 Report #: [id number] filling appropriately from Dr. Solorzano all of her medications in a timely fashion. She does safeguard her medications. We will check a buccal drug screen on this patient today as it has been a year since her last random drug screen. PHYSICAL EXAMINATION: GENERAL: This is a well-developed, well-nourished, well-hydrated 67-year-old female who appears her stated age. Placing her pain score today at 1/10. HEENT: Normocephalic, atraumatic. Pupils equal, round and reactive to light. EXTREMITIES: No clubbing, no cyanosis, no edema. MUSCULOSKELETAL: Gait appears normal. Lower extremity strength judged to be 5/5 in all major muscle groups. The patient does complain of some paresthesias in her posterior bilateral legs. We reviewed the fact that opiate medications are being used to provide analgesia adequate to support activities of daily living, not attempting to achieve a specific pain score on the 0-10 Visual Analog Scale. The current opiate medications are providing sufficient analgesia to allow the patient to participate in activities of daily living. The patient is not exhibiting any aberrant behavior suggestive of drug diversion. The patient is not having any adverse reactions to medications. The patient is not suffering from daytime somnolence or mental acuity changes. The patient is managing opiate-induced constipation with appropriate wlnc-pud-yzfgvgb agents and dietary considerations. The patient was counseled on concern for caution with operating a motor vehicle while using opiate medications. A physical exam was performed and the patient's functional status was evaluated. All patients with back pain were advised against the bed rest greater than 4 days and were advised to return to normal activities. Pain score assessment was noted and the treatment plan was reviewed with the patient. All current medications, both prescribed and OTC were reviewed and reconciled on the electronic medical record. Tobacco screening was accomplished and smoking cessation was advised when indicated. BMI was noted and diet/exercise modification was recommended for all patients following outside normal parameters. I reviewed with the patient today their responsibilities to safeguard prescription medications, reviewed their responsibility to utilize medications only as prescribed by the physician. They are to seek and receive pain medications only from 1 physician group ( [facility]). They are to use 1 pharmacy and keep the clinic informed if they change pharmacies. Their responsibilities include making followup visits in a timely fashion and to avoid abrupt discontinuation of medication usage. Their responsibilities further include bringing their medications (bottles from the pharmacy with residual pills) to the visit for possible confirmation of pill counts and the patient understands it is their responsibility to submit to random drug screens to [address] [address] PAIN MANAGEMENT CONSULTATION Name: NAIMA ROCHE Room #: REG OSEAS Oakley#: [id number] Admission: 06/09/18 ������������������ Attend Phys: Renea Fernandez Discharge: ������������������ Date of : 50 Report #: [id number] ensure both that the medications prescribed are present, and that no other controlled substances are present. All prescriptions provided today were generated electronically. ASSESSMENT: 1. Lumbosacral spondylosis with radiculopathy. 2. Lumbar degeneration. 3. Myofascial pain. 4. Chronic intractable pain. 5. Complicated medical therapy, using medication management under terms of written opioid agreement. PLAN: 1. We discussed treatment options with the patient today. She feels that her medications are keeping her pain well controlled. She denies any problems with constipation or daytime somnolence. She does not feel overmedicated, therefore we will refill her medications of Percocet 7.5/325, #120; for release in 1-week, 5-week and 9 weeks. The patient tells me she is 1 week or early today due to getting an appointment. 2. We will check a buccal swab on her today for a drug screen. 3. The patient will return in 3 months. The patient is agreeable with this plan of care. The patient seen in collaboration today with Dr. Toan Solorzano. ��������������������������������������������� <ELECTRONICALLY SIGNED> ���������������������������������������� By: Renea Fernandez ��������������������������������������������� 06/11/18 1415 [id number] Renea Fernandez /nt
== END ==
LOC: PAIN 06:56
DX: M47.27 Other spondylosis with radiculopathy, lumbosacral region (principal); G89.29 Other chronic pain; Z88.8 Allergy status to other drugs, medicaments and biological substances; Z79.899 Other long term (current) drug therapy; Z79.891 Long term (current) use of opiate analgesic

== ENCOUNTER → 2018-09-08 | Outpatient (CLI) | payer OTHER | LOC: RAD 13:09 | DX: M25.572 Pain in left ankle and joints of left foot (principal) ==

== ENCOUNTER → 2018-09-08 | Outpatient (CLI) | payer OTHER ==
[~2018-09-08] VITALS: Ht 160 cm; Wt 58.3 kg
[2018-09-08 12:33] VITALS: BP 163/77
--- NOTE | 2018-09-08 12:43 | NUR ---
Pain Clinic Assessment: 1. History of Osteoarthritis: Not Applicable History of Rheumatoid Arthritis: Not Applicable 2. Height: 5 ft. 3 in. 160.0 cm. Weight: 128.6 lb. oz. 58.332 kg. Patient's BMI: 22.8 3. Vital Signs: BP: 163/77 Pulse: 94 Resp: 18 Temp: 02 Sat: 100 ECG Mon: 4. Pain Intensity: 2-now,took med, avg 8 5. Fall Risk: Dizziness: N Needs help standing or walking: N Fallen in the last 3 months: N Fall risk comments: 6. Patient on Blood Thinner: None 7. History of Hypertension: Y 8. Opioid Therapy greater than 6 weeks: Y Opiate Contract Signed: 07/15/17 9. Risk Assessment Tool Provided: MODERATE RISK 07/26 10. Functional Assessment Tool: 11. Recreational Drug Use: Never Drug Type: Tobacco Use: Former Smoker Tobacco Type: Amount or Packs/day: How Many Years: Alcohol Use: No Frequency: Quant:
--- NOTE | 2018-09-10 08:04 | HPC ---
[facility] [address] [place] [address] PAIN MANAGEMENT CONSULTATION Name: MELCHOR,NAIMA L Room #: REG [facility]#: [id number] Admission: 09/08/18 ������������������ Attend Phys: Renea Fernandez Discharge: ������������������ Date of : 50 Report #: [id number] THIS REPORT FOR: //name// CC: Renea Liriano DATE OF SERVICE: 09/08/2018 CHIEF COMPLAINT: Low back pain, bilateral lower extremity pain and paresthesias and left hip pain. HISTORY OF PRESENT ILLNESS: This is a very pleasant 67-year-old female who returns to the pain clinic today for refill of her medications, but she does tell me that she has a new pain that started about 6 weeks ago in her left hip that radiates into her thigh. She tells me the pain does not start in her back. She tells me if she lies on it for quite a while, it starts hurting or when she walks on it, it hurts. She is limping now. She has not seen her primary care doctor about this. She is set for an appointment in about a week and is also scheduled for a bone density test next month. Her pain today is a 2/10, because her medications are helpful. Her average pain is 8. She denies any problems with constipation or daytime sleepiness. She tells me that standing, sitting and lying down are the worst positions for her. ALLERGIES: BENADRYL, XANAX, TETANUS, HALDOL. CURRENT MEDICATIONS: Oxycodone 7.5/325 four times a day, Rhopressa drops, Vyzulta drops, terbinafine 250 mg daily, Cozaar 100 mg daily, bupropion 150 mg daily, Nexium 40 mg daily, Synthroid 50 mcg daily, tizanidine 4 mg p.r.n., Lexapro 30 mg daily, Caltrate daily, amlodipine 10 mg daily, Depakote ER 500 mg at bedtime, Abilify 15 mg daily, Aspirin 81 mg daily. The patient's PQRS shows: 1. Osteoarthritis in her back, shoulders and hips bilaterally. She denies any rheumatoid arthritis. 2. Height is 5 feet 3 inches, weight is 128, BMI is 22. 3. Vital sig/ns 163/77, pulse is 94, respirations 18, oxygen sat is 100, pain score is 2/10 with an average of 8/10. 4. Fall risk denies dizziness. She does not need help with walking or standing. She has not fallen in the last 3 months. 5. The patient is not on any blood thinners. She does take medicines for hypertension. 6. Opioid therapy is greater than 6 weeks; therefore an opioid signed contract is on the chart. 7. Risk assessment is moderate functional assessment at 36/70. 8. Recreational drug use. She denies. She is a former smoker and does not drink alcohol. [address] [address] PAIN MANAGEMENT CONSULTATION Name: MELCHOR,NAIMA L Room #: REG [facility] Cele#: [id number] Admission: 09/08/18 ������������������ Attend Phys: Renea Fernandez Discharge: ������������������ Date of : 50 Report #: [id number] We did check the prescription monitoring system. The patient is filling appropriately for her medications from Dr. Solorzano. She does also have a recent drug screen on the chart. She tells me she safeguards her medications. PHYSICAL EXAMINATION: GENERAL: This is a well-developed, well-nourished 67-year-old female who appears her stated age, placing her current pain score today at 2/10. HEENT: Normocephalic, atraumatic. Extraocular eye muscles are intact. Mucous membranes are moist. MUSCULOSKELETAL: Gait is slightly antalgic favoring her left leg. She tells me she is limping, pain noted over her left hip area that radiates into her left thigh, not past her knee. Strength in her lower extremities is equal at 5/5, symmetrical muscle tone, pain with standing, uses the armrest to move from sitting to standing position also complains of low back tenderness today. Imaging: Normal xray of left hip without fracture. ASSESSMENT: 1. Lumbosacral spondylosis with radiculopathy. 2. Lumbar degeneration. 3. Left hip pain. 4. Myofascial pain. 5. Chronic intractable pain. 6. Complex medical management in terms of written opioid agreement. We reviewed the fact that opiate medications are being used to provide analgesia adequate to support activities of daily living, not attempting to achieve a specific pain score on the 0-10 Visual Analog Scale. The current opiate medications are providing sufficient analgesia to allow the patient to participate in activities of daily living. The patient is not exhibiting any aberrant behavior suggestive of drug diversion. The patient is not having any adverse reactions to medications. The patient is not suffering from daytime somnolence or mental acuity changes. The patient is managing opiate-induced constipation with appropriate pghz-lub-gmbjrqk agents and dietary considerations. The patient was counseled on concern for caution with operating a motor vehicle while using opiate medications. A physical exam was performed and the patient's functional status was evaluated. All patients with back pain were advised against the bed rest greater than 4 days and were advised to return to normal activities. Pain score assessment was noted and the treatment plan was reviewed with the patient. All current medications, both prescribed and OTC were reviewed and reconciled on the electronic medical record. Tobacco screening was accomplished and smoking cessation was advised when indicated. BMI was noted and diet/exercise modification was recommended for all patients following outside normal [facility] [address] [place] [address] PAIN MANAGEMENT CONSULTATION Name: NAIMA ROCHE Darby Room #: REG [facility].#: [id number] Admission: 09/08/18 ������������������ Attend Phys: Renea Fernandez Discharge: ������������������ Date of : 50 Report #: [id number] parameters. I reviewed with the patient today their responsibilities to safeguard prescription medications, reviewed their responsibility to utilize medications only as prescribed by the physician. They are to seek and receive pain medications only from 1 physician group ( [facility]). They are to use 1 pharmacy and keep the clinic informed if they change pharmacies. Their responsibilities include making followup visits in a timely fashion and to avoid abrupt discontinuation of medication usage. Their responsibilities further include bringing their medications (bottles from the pharmacy with residual pills) to the visit for possible confirmation of pill counts and the patient understands it is their responsibility to submit to random drug screens to ensure both that the medications prescribed are present, and that no other controlled substances are present. All prescriptions provided today were generated electronically. PLAN: 1. We discussed treatment options with the patient today. The patient tells me that she is having increased left hip pain that has been ongoing for about 6 weeks. She has not seen a doctor for this pain. Pain is worse with lying on her left side as well as walking. I will order an x-ray of her left hip, AP and lateral. 2. The patient will take up to our Radiology Department to be done today. If there is a too long wait since she has an appointment she will try and have her primary care doctor order it in the near future at her appointment there. I informed the patient we will call her if it shows any fractures other than degeneration of her hip. The patient verbalizes understanding. 3. The patient continues on her oxycodone 7.5/325, #120. Script was given today for an 8-week. This places her current morphine milliequivalent at 48 per day well under the CDC guidelines. The patient tells me she has no side effects or feeling overmedicated from this medication. 4. Dr. Toan Solorzano did come and see the patient today as well as collaborating care. ��������������������������������������������� <ELECTRONICALLY SIGNED> ���������������������������������������� By: Renea Fernandez ��������������������������������������������� 09/10/18 0804 [id number] Renea Fernandez /chrissy
== END ==
LOC: PAIN 06:52
DX: M47.27 Other spondylosis with radiculopathy, lumbosacral region (principal); M51.16 Intervertebral disc disorders with radiculopathy, lumbar region; G89.4 Chronic pain syndrome; Z79.891 Long term (current) use of opiate analgesic; Z88.8 Allergy status to other drugs, medicaments and biological substances

== ENCOUNTER → 2018-12-01 | Outpatient (CLI) | payer OTHER ==
[~2018-12-01] VITALS: Ht 160 cm; Wt 58.1 kg
[~2018-12-01] MED LIST changes: +CALCIUM 500 +1 EAC5 PO
[2018-12-01 12:34] VITALS: BP 159/82
--- NOTE | 2018-12-01 12:41 | NUR ---
Pain Clinic Assessment: 1. History of Osteoarthritis: RT SHOULDER History of Rheumatoid Arthritis: Not Applicable 2. Height: 5 ft. 3 in. 160.0 cm. Weight: 128.0 lb. oz. 58.060 kg. Patient's BMI: 22.7 3. Vital Signs: BP: 159/82 Pulse: 91 Resp: 16 Temp: 02 Sat: 100 ECG Mon: 4. Pain Intensity: 2-3 5. Fall Risk: Dizziness: N Needs help standing or walking: N Fallen in the last 3 months: N Fall risk comments: 6. Patient on Blood Thinner: None 7. History of Hypertension: Y 8. Opioid Therapy greater than 6 weeks: Y Opiate Contract Signed: 07/15/17 9. Risk Assessment Tool Provided: MODERATE RISK 07/26 10. Functional Assessment Tool: 11. Recreational Drug Use: Never Drug Type: Tobacco Use: Former Smoker Tobacco Type: Amount or Packs/day: How Many Years: Alcohol Use: No Frequency: Quant:
--- NOTE | 2018-12-02 15:07 | HPC ---
[facility] [address] [place] [address] PAIN MANAGEMENT CONSULTATION Name: NAIMA ROCHE Room #: REG [facility].#: [id number] Admission: 12/01/18 Attend Phys: Renea Fernandez Discharge: Date of : 50 Report #: [id number] THIS REPORT FOR: //name// CC: Renea Liriano DATE OF SERVICE: 12/01/2018 CHIEF COMPLAINT: Low back pain, bilateral lower extremity pain and paresthesias. HISTORY OF PRESENT ILLNESS: This is a very pleasant 68-year-old female who returns to the pain clinic today for a refill of her medications. She is reporting her pain today as a 2-3/10. She states she is doing quite well. She has gone on several trips this summer, just short distances for at least a day and has done quite well. She tells me that her pain is a throbbing pain, worse with standing and prolonged sitting, but she has tolerated these outings quite well with her medications. She denies any problems with constipation or daytime sleepiness. ALLERGIES: BENADRYL, XANAX, TETANUS AND DIPHTHERIA TYPHOID, ALLOPURINOL. CURRENT LIST OF MEDICATIONS: Oxycodone 7.5/325, Rhopressa drops, Vyzulta drops, losartan, bupropion, Nexium, terbinafine, Synthroid, tizanidine p.r.n., Lexapro, Caltrate, amlodipine, Depakote ER, Abilify and aspirin. PQRS: 1. The patient has a history of osteoarthritis in her back, shoulders, hips bilaterally. Denies any rheumatoid arthritis. 2. Height is 5 feet 3 inches, weight is 128, BMI is 22. 3. Vital signs: Blood pressure 159/82, pulse is 91, respirations 16, oxygen sat is 100. 4. Pain score is 2-3. 5. Fall risk. Denies dizziness, does not need help walking or standing, has not fallen in the last 3 months. 6. The patient is not on any blood thinners, does take medicine for hypertension. 7. Opiate therapy is greater than 6 weeks; therefore, an opioid signed contract is on the chart. Risk assessment is moderate. Functional assessment is 36/70. 8. Recreational drug use, she denies. She is a former smoker and does not drink alcohol. We did check the prescription monitoring system. The patient is filling appropriately for her medications. There is also a recent drug screen on the chart that is [place] [address] PAIN MANAGEMENT CONSULTATION Name: NAIMA ROCHE Room #: REG [facility]#: [id number] Admission: 12/01/18 Attend Phys: Renea Fernandez Discharge: Date of : 50 Report #: [id number] PHYSICAL EXAMINATION: GENERAL: This is a well-developed, well-nourished 68-year-old female who appears her stated age, placing her current pain score at 2/10 today. HEENT: Normocephalic, atraumatic. Extraocular eye muscles are intact. Mucous membranes are moist. MUSCULOSKELETAL: The patient's strength in her lower extremities is equal at 5/5 and symmetrical. She does have pain with standing across her lower back, which causes tenderness. She does move from sitting to standing using the armrests and walks with a slightly antalgic gait. ASSESSMENT: 1. Lumbosacral spondylosis with radiculopathy. 2. Lumbar degeneration. 3. Myofascial pain. 4. Chronic intractable pain. 5. Complex medical management in terms of written opioid agreement. We reviewed the fact that opiate medications are being used to provide analgesia adequate to support activities of daily living, not attempting to achieve a specific pain score on the 0-10 Visual Analog Scale. The current opiate medications are providing sufficient analgesia to allow the patient to participate in activities of daily living. The patient is not exhibiting any aberrant behavior suggestive of drug diversion. The patient is not having any adverse reactions to medications. The patient is not suffering from daytime somnolence or mental acuity changes. The patient is managing opiate-induced constipation with appropriate beki-kzh-lybeomd agents and dietary considerations. The patient was counseled on concern for caution with operating a motor vehicle while using opiate medications. A physical exam was performed and the patient's functional status was evaluated. All patients with back pain were advised against the bed rest greater than 4 days and were advised to return to normal activities. Pain score assessment was noted and the treatment plan was reviewed with the patient. All current medications, both prescribed and OTC were reviewed and reconciled on the electronic medical record. Tobacco screening was accomplished and smoking cessation was advised when indicated. BMI was noted and diet/exercise modification was recommended for all patients following outside normal parameters. I reviewed with the patient today their responsibilities to safeguard prescription medications, reviewed their responsibility to utilize medications only as prescribed by the physician. They are to seek and receive pain medications only from 1 physician group ([facility]). They are to use 1 pharmacy and keep the clinic informed if they change pharmacies. Their responsibilities include making followup visits in a timely fashion and to avoid abrupt discontinuation of medication usage. Their responsibilities further [facility] [address] [place] [address] PAIN MANAGEMENT CONSULTATION Name: NAIMA ROCHE Room #: REG [facility]#: [id number] Admission: 12/01/18 Attend Phys: Renea Fernandez Discharge: Date of : 50 Report #: [id number] include bringing their medications (bottles from the pharmacy with residual pills) to the visit for possible confirmation of pill counts and the patient understands it is their responsibility to submit to random drug screens to ensure both that the medications prescribed are present, and that no other controlled substances are present. All prescriptions provided today were generated electronically. PLAN: 1. We discussed treatment options with the patient today. The patient is doing quite well on her current regimen of medication. Scripts given today for oxycodone 7.5/325, #120, for today, 4-week and 8-week release. This places the person's morphine mEq at 45, which is half the amount that she was taking a year ago at this time. The patient has done quite well with this decrease and has not had any increased pain or side effects. 2. Dr. Toan Solorzano did see the patient as well today and collaborated care. The patient will return in 3 months. <ELECTRONICALLY SIGNED> By: Renea Fernandez 12/02/18 1507 [id number] Renea Fernandez /nt
== END ==
LOC: PAIN 06:54
DX: M47.27 Other spondylosis with radiculopathy, lumbosacral region (principal); M51.36 Other intervertebral disc degeneration, lumbar region; M79.18 Myalgia, other site; G89.4 Chronic pain syndrome; Z79.891 Long term (current) use of opiate analgesic; Z79.899 Other long term (current) drug therapy; Z79.82 Long term (current) use of aspirin; Z88.8 Allergy status to other drugs, medicaments and biological substances

== ENCOUNTER → 2019-02-23 | Outpatient (CLI) | payer OTHER ==
[~2019-02-23] VITALS: Ht 157.5 cm; Wt 58.5 kg
[~2019-02-23] MED LIST changes: +LIPITOR 20 MG T20 M1 PO; +MUCUS RELIEF C400 MG PO
[2019-02-23 12:35] VITALS: BP 157/73
--- NOTE | 2019-02-23 12:46 | NUR ---
Pain Clinic Assessment: 1. History of Osteoarthritis: RT SHOULDER History of Rheumatoid Arthritis: Not Applicable 2. Height: 5 ft. 2 in. 157.5 cm. Weight: 129.0 lb. oz. 58.514 kg. Patient's BMI: 23.6 3. Vital Signs: BP: 157/73 Pulse: 87 Resp: 16 Temp: 02 Sat: 96 ECG Mon: 4. Pain Intensity: 0 after meds 5. Fall Risk: Dizziness: N Needs help standing or walking: N Fallen in the last 3 months: N Fall risk comments: 6. Patient on Blood Thinner: None 7. History of Hypertension: Y 8. Opioid Therapy greater than 6 weeks: Y Opiate Contract Signed: 07/15/17 9. Risk Assessment Tool Provided: MODERATE RISK 4 10. Functional Assessment Tool: 11. Recreational Drug Use: Never Drug Type: Tobacco Use: Former Smoker Tobacco Type: Amount or Packs/day: How Many Years: Alcohol Use: No Frequency: Quant:
--- NOTE | 2019-02-24 09:27 | HPC ---
[facility] [address] [address] PAIN MANAGEMENT CONSULTATION Name: NAIMA ROCHE Darby Room #: REG [facility].#: [id number] Admission: 02/23/19 Attend Phys: Renea Fernandez Discharge: Date of : 50 Report #: [id number] THIS REPORT FOR: //name// CC: Renea Liriano DATE OF SERVICE: 02/23/2019 CHIEF COMPLAINT: Low back pain, bilateral extremity pain and paresthesias. HISTORY OF PRESENT ILLNESS: This is a very pleasant 68-year-old female who returns to the pain clinic today for refill of her medications. She reports 0 pain score today after taking her medications. She finds them very beneficial in controlling her low back pain and left hip pain. It is a throbbing, sharp pain that is worse with prolonged sitting and lying down, but her medications are very beneficial. She denies any problems with constipation or daytime sleepiness. The patient would like refills of these medications today. ALLERGIES: BENADRYL, XANAX, DIPHTHERIA TYPHOID and TOXOID, ALLOPURINOL. CURRENT LIST OF MEDICATIONS: Mucinex, mucus relief chest, atorvastatin, Percocet 7.5/325, calcium, Nexium, Rhopressa Vyzulta drops, terbinafine 250 mg daily, Cozaar, bupropion, Synthroid, tizanidine, Lexapro, calcium, amlodipine, Depakote, Abilify, and aspirin. PQRS: 1. She has a history of osteoarthritis in her bilateral shoulders, hips and back. Denies any rheumatoid arthritis. 2. Height is 5 feet 2 inches, weight is 129, and BMI is 23. 3. Vital signs 157/73, pulse is 87, respirations 16, and oxygen sat is 96. 4. Pain score is 0 out of 10 with medications. 5. Denies dizziness, does not need help walking or standing, has not fallen in the last 3 months. 6. The patient is not on any blood thinners, but does take medicine for hypertension. 7. Opioid therapy is greater than 6 weeks; therefore, an opioid signed contract is on the chart. Her risk assessment tool is moderate. Functional assessment is 11/25. 8. Recreational drug use, she denies. She is a former smoker and does not drink alcohol. According to the prescription monitoring system, the patient is filling appropriately for her medications. She is due this week. There is a recent drug screen on the chart that is appropriate for her medications as well. PHYSICAL EXAMINATION: [address] [address] PAIN MANAGEMENT CONSULTATION Name: NAIMA ROCHE Room #: REG [facility] Cele#: [id number] Admission: 02/23/19 Attend Phys: Renea Fernandez Discharge: Date of : 50 Report #: [id number] GENERAL: This is a well-developed, well-nourished 68-year-old female who appears her stated age, placing her current pain score at 0/10 today. HEENT: Normocephalic, atraumatic. Extraocular eye muscles are intact. Mucous membranes are moist. MUSCULOSKELETAL: She has pain across the lumbosacral area of her back. It does radiate slightly into her left hip. She moves from sitting to standing using the armrests and walks with a slow antalgic gait. ASSESSMENT: 1. Lumbosacral spondylosis with radiculopathy. 2. Lumbar degeneration. 3. Myofascial pain. 4. Chronic intractable pain. 5. Complex medical management under terms of written opioid agreement. 6. We reviewed the fact that opiate medications are being used to provide analgesia adequate to support activities of daily living, not attempting to achieve a specific pain score on the 0-10 Visual Analog Scale. The current opiate medications are providing sufficient analgesia to allow the patient to participate in activities of daily living. The patient is not exhibiting any aberrant behavior suggestive of drug diversion. The patient is not having any adverse reactions to medications. The patient is not suffering from daytime somnolence or mental acuity changes. The patient is managing opiate-induced constipation with appropriate tpnr-hrg-kogsszk agents and dietary considerations. The patient was counseled on concern for caution with operating a motor vehicle while using opiate medications. A physical exam was performed and the patient's functional status was evaluated. All patients with back pain were advised against the bed rest greater than 4 days and were advised to return to normal activities. Pain score assessment was noted and the treatment plan was reviewed with the patient. All current medications, both prescribed and OTC were reviewed and reconciled on the electronic medical record. Tobacco screening was accomplished and smoking cessation was advised when indicated. BMI was noted and diet/exercise modification was recommended for all patients following outside normal parameters. I reviewed with the patient today their responsibilities to safeguard prescription medications, reviewed their responsibility to utilize medications only as prescribed by the physician. They are to seek and receive pain medications only from 1 physician group ([facility]). They are to use 1 pharmacy and keep the clinic informed if they change pharmacies. Their responsibilities include making followup visits in a timely fashion and to avoid abrupt discontinuation of medication usage. Their responsibilities further include bringing their medications (bottles from the pharmacy with residual pills) to the visit for possible confirmation of pill counts and the patient understands it is their responsibility to submit to random drug screens to [facility] [address] [place] [address] PAIN MANAGEMENT CONSULTATION Name: NAIMA ROCHE Room #: REG [facility] Cele#: [id number] Admission: 02/23/19 Attend Phys: Renea Fernandez Discharge: Date of : 50 Report #: [id number] ensure both that the medications prescribed are present, and that no other controlled substances are present. All prescriptions provided today were generated electronically. PLAN: 1. We discussed treatment options with the patient today. The patient is doing "great per her words with her current medication regimen. She denies any pain currently. She would like refills of her Percocet 7.5/325, #120 given today, 4-week, and 8-week release. This does place the patient at 45 morphine milliequivalents according to the CDC guidelines. 2. The patient denies any problems with constipation. 3. We did talk about socialization and getting out. The patient had reported that she is doing the rest of her errands today, and then will not leave her house until March. We encouraged her to be social with the residents of the community that she lives in and to make sure she is out of her apartment every day, socializing. She does verbalize understanding. She explains she does do word searches with them in the evening. 4. The patient is seen by Dr. Toan Solorzano as well today, who collaborated care. <ELECTRONICALLY SIGNED> By: Renea Fernandez 02/24/19 0927 [id number] 0113 Renea ragsdale
== END ==
LOC: PAIN 06:47
DX: M47.27 Other spondylosis with radiculopathy, lumbosacral region (principal); M51.16 Intervertebral disc disorders with radiculopathy, lumbar region; M79.7 Fibromyalgia; G89.4 Chronic pain syndrome; Z79.899 Other long term (current) drug therapy; Z79.891 Long term (current) use of opiate analgesic; Z88.8 Allergy status to other drugs, medicaments and biological substances

== ENCOUNTER → 2019-05-18 | Outpatient (CLI) | payer OTHER ==
[~2019-05-18] VITALS: Ht 157.5 cm; Wt 59.7 kg
[~2019-05-18] MED LIST changes: +PROLIA60 MG/1 ML SUBQ
[2019-05-18 10:36] VITALS: BP 139/75
--- NOTE | 2019-05-18 10:57 | NUR ---
Pain Clinic Assessment: 1. History of Osteoarthritis: RT SHOULDER L HIP History of Rheumatoid Arthritis: Not Applicable 2. Height: 5 ft. 2 in. 157.5 cm. Weight: 131.6 lb. oz. 59.693 kg. Patient's BMI: 24.1 3. Vital Signs: BP: 139/75 Pulse: 85 Resp: 14 Temp: 02 Sat: 97 ECG Mon: 4. Pain Intensity: 1 5. Fall Risk: Dizziness: N Needs help standing or walking: N Fallen in the last 3 months: N Fall risk comments: 6. Patient on Blood Thinner: None 7. History of Hypertension: Y 8. Opioid Therapy greater than 6 weeks: Y Opiate Contract Signed: 07/15/17 9. Risk Assessment Tool Provided: MODERATE RISK 4 10. Functional Assessment Tool: 11. Recreational Drug Use: Never Drug Type: Tobacco Use: Former Smoker Tobacco Type: Amount or Packs/day: How Many Years: Alcohol Use: No Frequency: Quant:
--- NOTE | 2019-05-19 08:07 | HPC ---
[facility] [place] [address] PAIN MANAGEMENT CONSULTATION Name: NAIMA ROCHE [facility] #[id number] Admission: 05/18/19 Attend Phys: Renea Fernandez Discharge: Date of : 50 Report #: [id number] THIS REPORT FOR: //name// CC: Renea Shaver MD DATE OF SERVICE: 05/18/2019 CHIEF COMPLAINT: Low back pain, bilateral extremity pain and paresthesias. HISTORY OF PRESENT ILLNESS: This is a very pleasant 68-year-old female who returns to the pain clinic today for refill of her medications. She is reporting a pain score of 1/10. She did take her medicine this morning and finds that they are very beneficial. She reports that her left hip is feeling much better than the last visit. Today, she has continued to complain of mostly low back pain. It is worse with prolonged sitting and standing. She does use medication as well as Vicks vapor rub and that seems to benefit her greatly. It is a throbbing, sharp pain at times. Today, the patient is denying any problems with constipation as long as she uses some niug-nmj-gwisgxj medications and controls it with diet. She feels that she is doing quite well with her current regimen and would like refills today. ALLERGIES: BENADRYL, XANAX, TETANUS, DIPHTHERIA, TYPHOID, ALLOPURINOL. CURRENT LIST OF MEDICATIONS: Prolia, calcium, oxycodone 7.5/325 q.i.d. p.r.n., Lipitor, Nexium, Rhopressa drops, terbinafine 250 mg daily, Cozaar, bupropion, levothyroxine, tizanidine, Lexapro, Caltrate, amlodipine, Depakote, Abilify, and aspirin. PQRS: 1. She has osteoarthritis in her hips and shoulders. Denies any rheumatoid arthritis. 2. Height is 5 feet 2 inches, weight is 131, BMI is 24. 3. Vital signs: Blood pressure 139/75, pulse is 85, respirations 14, oxygen sat is 97. 4. Pain score is 1/10. 5. Denies dizziness, does not need help walking or standing, has not fallen in the last 3 months. 6. The patient is not on any blood thinners, but does have a history of hypertension. 7. Opioid therapy is greater than 6 weeks; therefore, an opioid signed contract is on the chart. Risk assessment is moderate. Functional assessment is . 8. Recreational drug use, she denies. She is a former smoker and [place] [address] PAIN MANAGEMENT CONSULTATION Name: NAIAM ROCHE Room #: REG CL Cele#: [id number] Admission: 05/18/19 Attend Phys: Renea Fernandez Discharge: Date of : 50 Report #: [id number] According to the prescription monitoring system, the patient is filling appropriately for her medications, filling them in a timely fashion. She is due to fill those medications today. Her morphine mEq according to the CDC guidelines is 45 MME per day. PHYSICAL EXAMINATION: GENERAL: This is alert and orientated, well-developed, well-nourished 68-year-old female who appears her stated age, placing her current pain score of 1/10 today. HEENT: Normocephalic, atraumatic. Extraocular eye muscles are intact. Mucous membranes are moist. She has some jaw clenching with her tardive dyskinesia. MUSCULOSKELETAL: She has pain in the lumbosacral area. She moves from sitting to standing without difficulty. She does have a slightly antalgic gait. Lower extremity strength judged to be 5/5 in all major muscle groups. IMPRESSION: 1. Lumbosacral spondylosis with radiculopathy. 2. Lumbar degeneration. 3. Myofascial pain. 4. Chronic intractable pain. 5. Bipolar. 6. Complex medical management under terms of written opioid agreement. We reviewed the fact that opiate medications are being used to provide analgesia adequate to support activities of daily living, not attempting to achieve a specific pain score on the 0-10 Visual Analog Scale. The current opiate medications are providing sufficient analgesia to allow the patient to participate in activities of daily living. The patient is not exhibiting any aberrant behavior suggestive of drug diversion. The patient is not having any adverse reactions to medications. The patient is not suffering from daytime somnolence or mental acuity changes. The patient is managing opiate-induced constipation with appropriate jwus-yfp-djkdiuy agents and dietary considerations. The patient was counseled on concern for caution with operating a motor vehicle while using opiate medications. PLAN: 1. We discussed treatment options with the patient today. The patient is doing quite well on her current regimen. We discussed that we will be e-prescribing these medicines to her pharmacy from now on. The patient is very happy about this. She worries of having the medications in her house, waiting to be filled due to living in a snf environment. Scripts will be sent electronically by Dr. Toan Solorzano who did see the patient as well today and collaborated care for her Percocet 7.5/325, #120 for today, 4-week and 8-week release. [address] [place] [address] PAIN MANAGEMENT CONSULTATION Name: NAIMA ROCHE Room #: REG [facility] [place]#: [id number] Admission: 05/18/19 Attend Phys: Renea Fernandez Discharge: Date of : 50 Report #: [id number] 2. The patient will return in 3 months for followup and the patient encouraged to call for an appointment when she fills her last prescription. <ELECTRONICALLY SIGNED> By: Renea Fernandez 05/19/19 0807 1142 18 Renea Fernandez /chrissy
== END ==
LOC: PAIN 06:56
DX: M47.27 Other spondylosis with radiculopathy, lumbosacral region (principal); M51.16 Intervertebral disc disorders with radiculopathy, lumbar region; G89.4 Chronic pain syndrome; F32.9 Major depressive disorder, single episode, unspecified; Z79.891 Long term (current) use of opiate analgesic

== ENCOUNTER → 2019-08-10 | Outpatient (CLI) | payer OTHER ==
[~2019-08-10] VITALS: Ht 157.5 cm; Wt 61.1 kg
[2019-08-10 10:17] VITALS: BP 142/69
--- NOTE | 2019-08-10 10:30 | NUR ---
Pain Clinic Assessment: 1. History of Osteoarthritis: RT SHOULDER L HIP History of Rheumatoid Arthritis: Not Applicable 2. Height: 5 ft. 2 in. 157.5 cm. Weight: 134.8 lb. oz. 61.145 kg. Patient's BMI: 24.6 3. Vital Signs: BP: 142/69 Pulse: 82 Resp: 14 Temp: 02 Sat: 100 ECG Mon: 4. Pain Intensity: 0-1 5. Fall Risk: Dizziness: N Needs help standing or walking: N Fallen in the last 3 months: N Fall risk comments: 6. Patient on Blood Thinner: None 7. History of Hypertension: Y 8. Opioid Therapy greater than 6 weeks: Y Opiate Contract Signed: 07/15/17 9. Risk Assessment Tool Provided: MODERATE RISK 4 10. Functional Assessment Tool: 11. Recreational Drug Use: Never Drug Type: Tobacco Use: Former Smoker Tobacco Type: Amount or Packs/day: How Many Years: Alcohol Use: No Frequency: Quant:
--- NOTE | 2019-08-11 12:25 | HPC ---
[facility] [address] [place] [address] PAIN MANAGEMENT CONSULTATION Name: NAIMA ROCHE Room #: REG [facility].#: [id number] Admission: 08/10/19 Attend Phys: Toan Solorzano DO Discharge: Date of : 50 Report #: [id number] THIS REPORT FOR: cc: Eulalio Liriano MD, Kirk D. MD Johnson, James E. DO ~ DATE OF SERVICE: 08/10/2019 REFERRING PHYSICIAN: Kit Chadwick MD CHIEF COMPLAINT: Low back pain, bilateral lower extremity pain and paresthesias. HISTORY OF PRESENT ILLNESS: As you know, the patient is a very pleasant 68-year-old female who has returned today in followup visit for continuation of medication management. She feels medications are working beneficially for pain control. She is placing pain today at 0-1/10. She states that the combination of increasing exercise activity and medications have provided good benefit. She returns today in followup visit requesting continuation of medication therapy, she is seeing good efficacy. She is denying side effects of sleepiness, disorientation, confusion, mental slowing or constipation with their use. She states that without the medication, she would likely be unable to go about her activities of daily living. ALLERGIES: BENADRYL, XANAX, TETANUS, DIPHTHERIA, TYPHOID, ALLOPURINOL. CURRENT MEDICATIONS: Prolia, calcium, oxycodone, Lipitor, Nexium, terbinafine, Cozaar, bupropion, levothyroxine, tizanidine, Lexapro, Caltrate, amlodipine, Depakote, Abilify, aspirin. SOCIAL HISTORY: The patient denies current tobacco use. Denies IV or illicit drug use. Denies any chronic alcohol use. She is unaccompanied at today's visit. IMAGING STUDIES: No new imaging available. PQRS: The patient has known arthritic changes of the bilateral shoulders, bilateral hips, and lumbar spine. No diagnosis of rheumatoid arthritis. She is placing pain intensity of 0-1/10. She is not at fall risk nor has she had a fall in last 3 months. She is not on blood thinners, but is treated for hypertension. She is on chronic opioids with a moderate risk of opioid addiction based on our assessment tool. Pain impact is 8/70 indicating mild interference of daily activities secondary to pain. PHYSICAL EXAMINATION: [facility] [address] [place] [address] PAIN MANAGEMENT CONSULTATION Name: NAIMA ROCHE [facility] #: [id number] Admission: 08/10/19 Attend Phys: Toan Solorzano DO Discharge: Date of : 50 Report #: [id number] VITAL SIGNS: Blood pressure 142/69, pulse 82, respiratory rate 14 and unlabored, the patient is 100% on room air. Height 5 feet 2 inches tall, weight 134.8 pounds, BMI calculated 24.6. GENERAL: Well-developed, well-nourished, well-hydrated 68-year-old female, appearing her stated age, pain is rated today at 0-1/10. HEENT: Normocephalic and atraumatic. Pupils are equal, round, and reactive. EXTREMITIES: Show no clubbing, no cyanosis, and no edema. MUSCULOSKELETAL: Palpatory tenderness noted over the paraspinal musculature of lower lumbar spine. No spinous process tenderness. Seated straight leg raising negative. Supine straight leg raising today is negative. Roshan's test is negative. Modified Gaenslen's positive for axial low back pain. Ankle clonus negative. Babinski is negative. Muscle bulk and tone is equal and symmetrical in lower extremities bilaterally. ASSESSMENT: 1. Lumbosacral spondylosis with history of radiculopathy. 2. Lumbar degeneration. 3. Myofascial pain. 4. Complex medication management utilizing scheduled medications. 5. Chronic intractable pain. PLAN: 1. The patient returns today in followup visit requesting refill on medications. She feels medications are working beneficially for pain control. She denies side effects of sleepiness, disorientation, confusion, mental slowing or constipation with their use. She wishes to continue the medication as she has found benefit with this therapy along with some increasing exercise routines at home. She states that this allows her to go about her activities of daily living without significant pain interference. She returns today requesting refill on medications at current dosing. 2. We have reviewed the patient's PDMP both on the [place] and [place] reports. There is no concerning entries. 3. We reviewed the fact that opiate medications are being used to provide analgesia adequate to support activities of daily living, not attempting to achieve a specific pain score on the 0-10 Visual Analog Scale. The current opiate medications are providing sufficient analgesia to allow the patient to participate in activities of daily living. The patient is not exhibiting any aberrant behavior suggestive of drug diversion. The patient is not having any adverse reactions to medications. The patient is not suffering from daytime somnolence or mental acuity changes. The patient is managing opiate-induced constipation with appropriate nyiz-svy-mbehvoc agents and dietary considerations. The patient was counseled on concern for caution with operating a motor vehicle while using opiate medications. A physical exam was performed and the patient's functional status was evaluated. All patients with back pain were advised against the bed rest greater than 4 [facility] [place] [address] PAIN MANAGEMENT CONSULTATION Name: NAIMA ROCHE Room #: REG [facility]..#: [id number] Admission: 08/10/19 Attend Phys: Toan Solorzano DO Discharge: Date of : 50 Report #: [id number] days and were advised to return to normal activities. Pain score assessment was noted and the treatment plan was reviewed with the patient. All current medications, both prescribed and OTC were reviewed and reconciled on the electronic medical record. Tobacco screening was accomplished and smoking cessation was advised when indicated. BMI was noted and diet/exercise modification was recommended for all patients following outside normal parameters. I reviewed with the patient today their responsibilities to safeguard prescription medications, reviewed their responsibility to utilize medications only as prescribed by the physician. They are to seek and receive pain medications only from 1 physician group ( [facility]). They are to use 1 pharmacy and keep the clinic informed if they change pharmacies. Their responsibilities include making followup visits in a timely fashion and to avoid abrupt discontinuation of medication usage. Their responsibilities further include bringing their medications (bottles from the pharmacy with residual pills) to the visit for possible confirmation of pill counts and the patient understands it is their responsibility to submit to random drug screens to ensure both that the medications prescribed are present, and that no other controlled substances are present. All prescriptions provided today were generated electronically. 4. The patient was provided prescription of Percocet 7.5/325 one tablet p.o. q.6 hours p.r.n. for pain. She was given #120 tablets, releasing today, 4 weeks from today, 8 weeks from today, 3 months' worth of medication. The patient was advised to take the medication only as directed. She is not to utilize the medication prophylactically. 5. We will see the patient back in followup visit in 3 months for medication management, earlier if she wishes to discuss interventional treatments or other options for therapy. <ELECTRONICALLY SIGNED> By: Toan Solorzano DO 08/11/19 1225 1308 1322 Toan Solorzano DO /nt
== END ==
LOC: PAIN 09:09
DX: M47.817 Spondylosis without myelopathy or radiculopathy, lumbosacral region (principal); M51.36 Other intervertebral disc degeneration, lumbar region; M79.604 Pain in right leg; M79.605 Pain in left leg; R20.2 Paresthesia of skin; M79.18 Myalgia, other site; G89.29 Other chronic pain; Z88.1 Allergy status to other antibiotic agents; Z88.3 Allergy status to other anti-infective agents; Z88.5 Allergy status to narcotic agent; Z88.8 Allergy status to other drugs, medicaments and biological substances; Z79.899 Other long term (current) drug therapy

== ENCOUNTER → 2019-11-02 | Outpatient (CLI) | payer OTHER ==
[~2019-11-02] VITALS: Ht 157.5 cm; Wt 60.5 kg
[2019-11-02 13:19] VITALS: BP 150/84
--- NOTE | 2019-11-02 13:32 | NUR ---
Pain Clinic Assessment: 1. History of Osteoarthritis: RT SHOULDER L HIP History of Rheumatoid Arthritis: DENIES 2. Height: 5 ft. 2 in. 157.5 cm. Weight: 133.4 lb. oz. 60.510 kg. Patient's BMI: 24.4 3. Vital Signs: BP: 150/84 Pulse: 101 Resp: 18 Temp: 02 Sat: 100 ECG Mon: 4. Pain Intensity: 5-6 5. Fall Risk: Dizziness: N Needs help standing or walking: N Fallen in the last 3 months: N Fall risk comments: 6. Patient on Blood Thinner: None 7. History of Hypertension: Y 8. Opioid Therapy greater than 6 weeks: Y Opiate Contract Signed: 07/15/17 9. Risk Assessment Tool Provided: MODERATE RISK 4 10. Functional Assessment Tool: 11. Recreational Drug Use: Never Drug Type: Tobacco Use: Former Smoker Tobacco Type: Amount or Packs/day: How Many Years: Alcohol Use: No Frequency: Quant:
--- NOTE | 2019-11-03 10:00 | HPC ---
[facility] [address] [address] PAIN MANAGEMENT CONSULTATION Name: NAIMA ROCHE Room #: REG [facility].#: [id number] Admission: 11/02/19 Attend Phys: Renea Fernandez Discharge: Date of : 50 Report #: [id number] THIS REPORT FOR: cc: Eulalio Liriano MD, Kirk D. MD Hocker, Amanda CNS ~ CC: ADITYA MATIAS DO DATE OF SERVICE: 11/02/2019 CHIEF COMPLAINT: Low back pain, bilateral lower extremity pain and paresthesias. HISTORY OF PRESENT ILLNESS: As you know, this is a very pleasant 68-year-old female who returns to the pain clinic today for refill of her medications that she uses to help treat her ongoing low back pain and left leg pain. Today, she is reporting a pain score of 5-6/10. States it is a burning pain that is worse with activity. She feels that the medications have been beneficial as well as resting on her back. She denies problems with constipation or daytime somnolence. She states that she has mostly been staying in her apartment since the COVID outbreak. At times, she is lonely, but then she does have a caregiver, which is her son and comes and sees her at least once a week and she finds that very beneficial. The patient is excited today about her birthday celebration this weekend. She is hopeful to get to go to a restaurant with her family. ALLERGIES: BENADRYL, ALPRAZOLAM, TETANUS, DIPHTHERIA, TYPHOID AND HALCION. CURRENT LIST OF MEDICATIONS: Oxycodone 7.5/325 up to 4 times a day, Prolia, Mucinex, atorvastatin, Os-Luther, Nexium, Rhopressa, Vyzulta, Cozaar, Wellbutrin, Synthroid, tizanidine, Lexapro, amlodipine, Depakote, Abilify and aspirin. PATIENT'S PQRS: 1. She has a history of arthritic changes in her shoulders, hips and spine. Denies any rheumatoid arthritis. Height is 5 feet 2 inches, weight is 133, BMI is 24. 2. Vital signs 150/84, pulse is 101, respirations 18, oxygen sat is 100. 3. Pain score is 5-6. 4. Denies dizziness, does not need help walking or standing, has not fallen in the last 3 months. 5. The patient is not on blood thinners, but does take medicine for hypertension. Opioid therapy is greater than 6 weeks; therefore, an opioid signed contract is on the chart. Risk assessment is moderate. Functional assessment is . 6. Recreational drug use, she denies. She is a former smoker and does not drink alcohol. [address] [address] PAIN MANAGEMENT CONSULTATION Name: NAIMA ROCHE Room #: REG [facility]#: [id number] Admission: 11/02/19 Attend Phys: Renea Fernandez Discharge: Date of : 50 Report #: [id number] According to the prescription monitoring system, the patient is filling appropriately for her medications. She is due to fill these today. PHYSICAL EXAMINATION: GENERAL: This is an alert, orientated, well-developed, well-nourished 68-year-old female who appears her stated age, placing her current pain score today at 5-6. HEENT: Normocephalic, atraumatic. Extraocular eye muscles are intact. She is wearing a mask. EXTREMITIES: No clubbing, no cyanosis, no edema. MUSCULOSKELETAL: Modified Gaenslen is positive for axial back pain. She has tenderness over the paraspinal musculature of the lower lumbar spine. Seated straight leg raising is negative. Muscle bulk and tone is equal and symmetrical in her lower extremities bilaterally with good sensation from L1-S2. ASSESSMENT: 1. Lumbar spondylosis with history of radiculopathy. 2. Lumbar degeneration. 3. Myofascial pain. 4. Complex medical management utilizing scheduled medications. We reviewed the fact that opiate medications are being used to provide analgesia adequate to support activities of daily living, not attempting to achieve a specific pain score on the 0-10 Visual Analog Scale. The current opiate medications are providing sufficient analgesia to allow the patient to participate in activities of daily living. The patient is not exhibiting any aberrant behavior suggestive of drug diversion. The patient is not having any adverse reactions to medications. The patient is not suffering from daytime somnolence or mental acuity changes. The patient is managing opiate-induced constipation with appropriate fsfu-dvz-bfncmss agents and dietary considerations. The patient was counseled on concern for caution with operating a motor vehicle while using opiate medications. PLAN: We discussed treatment options with the patient today. The patient finds her medications beneficial with minimal side effects. We will continue her oxycodone 7.5/325, #120, for [address] Aditya Matias will send these electronically. At the next visit, we will check a random drug screen on this patient since it has been greater than one year. The patient will return in 3 months. <ELECTRONICALLY SIGNED> By: Renea Fernandez 11/03/19 [id number] Renea Fernandez /chrissy
== END ==
LOC: PAIN 06:58
PROVIDERS: ATTEND Clinical Nurse Specialist Adult Health
DX: M47.26 Other spondylosis with radiculopathy, lumbar region (principal); M54.5 Low back pain; M79.605 Pain in left leg; M79.604 Pain in right leg; R20.2 Paresthesia of skin; I10 Essential (primary) hypertension; M79.18 Myalgia, other site; G31.89 Other specified degenerative diseases of nervous system; Z88.8 Allergy status to other drugs, medicaments and biological substances

== ENCOUNTER → 2020-01-25 | Outpatient (CLI) | payer OTHER ==
[~2020-01-25] MED LIST changes: +ALLERGY PLUS-S1 EACH PO; +MUCUS RELIEF400 MG PO
== END ==
LOC: BC 08:10
DX: Z12.31 Encounter for screening mammogram for malignant neoplasm of breast (principal)

== ENCOUNTER → 2020-01-25 | Outpatient (CLI) | payer OTHER ==
[~2020-01-25] VITALS: Ht 157.5 cm; Wt 57.5 kg
[2020-01-25 13:03] VITALS: BP 156/79
--- NOTE | 2020-01-25 13:30 | NUR ---
Pain Clinic Assessment: 1. History of Osteoarthritis: RT SHOULDER L HIP History of Rheumatoid Arthritis: DENIES 2. Height: 5 ft. 2 in. 157.5 cm. Weight: 126.8 lb. oz. 57.516 kg. Patient's BMI: 23.2 3. Vital Signs: BP: 156/79 Pulse: 111 Resp: 20 Temp: 02 Sat: 97 ECG Mon: 4. Pain Intensity: 1 5. Fall Risk: Dizziness: N Needs help standing or walking: N Fallen in the last 3 months: N Fall risk comments: 6. Patient on Blood Thinner: None 7. History of Hypertension: Y 8. Opioid Therapy greater than 6 weeks: Y Opiate Contract Signed: 07/15/17 9. Risk Assessment Tool Provided: MODERATE RISK 4 10. Functional Assessment Tool: 11. Recreational Drug Use: Never Drug Type: Tobacco Use: Former Smoker Tobacco Type: Amount or Packs/day: How Many Years: Alcohol Use: No Frequency: Quant:
--- NOTE | 2020-01-26 11:12 | HPC ---
[facility] [address] [place] [address] PAIN MANAGEMENT CONSULTATION Name: NAIMA ROCHE Room #: REG [facility].#: [id number] Admission: 01/25/20 Attend Phys: Renea Fernandez Discharge: Date of : 50 Report #: [id number] CC: Renea Dominguez DATE OF SERVICE: 01/25/2020 CHIEF COMPLAINT: Low back pain, bilateral lower extremity pain and paresthesias. HISTORY OF PRESENT ILLNESS: This is a very pleasant 69-year-old female who returns to the pain clinic today for refill of her opioid medications. She reports she is doing quite well with her current regimen, rating her pain score 1/10 today. She feels that nighttime has become very problematic and she does take 1 pain pill every night before bedtime and finds it very beneficial. Today, she reports ongoing low back pain that does radiate into her left thigh. It is a burning, aching pain, worse with any activity or when she gets up to walk after a few minutes that pain is relieved with activity. Lying on her back and taking her medications are most beneficial. She denies problems with constipation as a result of her opioid medications. Today, she is requesting refills of her hydrocodone. ALLERGIES: BENADRYL, XANAX, TETANUS, DIPHTHERIA TOXOID, ALLOPURINOL. MEDICATION LIST: Guaifenesin, oxycodone 7.5/325 p.r.n., Prolia, atorvastatin, calcium, Nexium, Rhopressa, Vyzulta, Cozaar, Wellbutrin, Synthroid, tizanidine, Lexapro, amlodipine, Depakote, Abilify, and aspirin. PQRS: 1. She has osteoarthritic changes in her hips, spine and shoulders. Denies any rheumatoid arthritis. 2. Height is 5 feet 2 inches, weight is 126, BMI is 23. Vital signs 156/79, pulse is 111, respirations 20, oxygen sat is 97%. Pain score is 1/10. Fall risk. Denies dizziness, does not need help walking or standing, has not fallen in the last 3 months. The patient is not on any blood thinners, but does take medicine for hypertension. Her opioid therapy is greater than 6 weeks; therefore, an opioid signed contract is on the chart. Risk assessment is moderate. Functional assessment is . 3. Recreational drug use, she denies. She is a former smoker and does not drink alcohol. According to the prescription monitoring system, the patient is filling appropriately for her medications in a timely fashion. We will collect a random drug screen on this patient today. PHYSICAL EXAMINATION: GENERAL: This is a well-developed, well-nourished, alert and orientated 69-year-old female who appears her stated age, placing her current pain score 1/10 today. HEENT: Normocephalic, atraumatic. Extraocular eye muscles are intact. She is wearing glasses and a mask. EXTREMITIES: No clubbing, no cyanosis, no edema. MUSCULOSKELETAL: She has pain in her lumbosacral region that does radiate slightly into her thigh. Supine straight leg raising is negative. Roshan's test is negative. Modified ganglion is positive for axial low back pain, lower extremity strength is symmetrical at 5/5. ASSESSMENT: 1. Lumbosacral spondylosis without radiculopathy. 2. Lumbar degeneration. 3. Myofascial pain. 4. Chronic intractable pain. We reviewed the fact that opiate medications are being used to provide analgesia adequate to support activities of daily living, not attempting to achieve a specific pain score on the 0-10 Visual Analog Scale. The current opiate medications are providing sufficient analgesia to allow the patient to participate in activities of daily living. The patient is not exhibiting any aberrant behavior suggestive of drug diversion. The patient is not having any adverse reactions to medications. The patient is not suffering from daytime somnolence or mental acuity changes. The patient is managing opiate-induced constipation with appropriate tfrp-cqb-hyajble agents and dietary considerations. The patient was counseled on concern for caution with operating a motor vehicle while using opiate medications. PLAN: 1. We discussed treatment options with the patient today. She finds her hydrocodone very beneficial allowing her to be as active as she was like despite being her oxycodone. Her apartment living situation is still on lockdown due to COVID. She is able to go to doctor's appointments, but her family is not allowed to visit, therefore she is slightly depressed over that not seeing her grandchildren. Her son is her caregiver and does get to come to her apartment several times a week. Today, we will have Dr. Toan Solorzano send oxycodone 7.5/325 q.i.d. to her pharmacy for today, 4-week and 8-week release. 2. We will collect a random drug screen on this patient at her next visit. 3. The patient will return at the beginning of the New Year. The patient is seen today in collaboration with Dr. Toan Solorzano. <ELECTRONICALLY SIGNED> By: Renea Fernandez 01/26/20 1112 [id number] Renea Fernandez /nt
== END ==
LOC: PAIN 06:54
PROVIDERS: ATTEND Clinical Nurse Specialist Adult Health
DX: M47.817 Spondylosis without myelopathy or radiculopathy, lumbosacral region (principal); M51.36 Other intervertebral disc degeneration, lumbar region; M79.604 Pain in right leg; M79.605 Pain in left leg; R20.2 Paresthesia of skin; M79.10 Myalgia, unspecified site; G89.29 Other chronic pain; Z88.8 Allergy status to other drugs, medicaments and biological substances; Z79.899 Other long term (current) drug therapy

== ENCOUNTER → 2020-04-18 | Outpatient (CLI) | payer OTHER ==
[~2020-04-18] VITALS: Ht 157.5 cm; Wt 54.2 kg
[~2020-04-18] MED LIST changes: +BREO ELLIPTA 11 EACH INH
[2020-04-18 12:27] VITALS: BP 148/76
--- NOTE | 2020-04-18 12:41 | NUR ---
Pain Clinic Assessment: 1. History of Osteoarthritis: RT SHOULDER L HIP History of Rheumatoid Arthritis: DENIES 2. Height: 5 ft. 2 in. 157.5 cm. Weight: 119.4 lb. oz. 54.159 kg. Patient's BMI: 21.8 3. Vital Signs: BP: 148/76 Pulse: 100 Resp: 18 Temp: 02 Sat: 98 ECG Mon: 4. Pain Intensity: 1 5. Fall Risk: Dizziness: N Needs help standing or walking: N Fallen in the last 3 months: N Fall risk comments: 6. Patient on Blood Thinner: None 7. History of Hypertension: Y 8. Opioid Therapy greater than 6 weeks: Y Opiate Contract Signed: 07/15/17 9. Risk Assessment Tool Provided: MODERATE RISK 4 10. Functional Assessment Tool: 11. Recreational Drug Use: Never Drug Type: Tobacco Use: Former Smoker Tobacco Type: Amount or Packs/day: How Many Years: Alcohol Use: No Frequency: Quant:
--- NOTE | 2020-04-19 07:19 | HPC ---
[facility] [address] [address] PAIN MANAGEMENT CONSULTATION Name: NAIMA ROCHE Room #: REG [facility].#: [id number] Admission: 04/18/20 Attend Phys: Renea Fernandez Discharge: Date of : 50 Report #: [id number] THIS REPORT FOR: cc: Samantha Bonilla DNP, Mary E. DNP Hocker,Renea Mcarthur DATE OF SERVICE: 04/18/2020 CHIEF COMPLAINT: Low back pain, bilateral extremity pain and paresthesias. HISTORY OF PRESENT ILLNESS: This is a very pleasant 69-year-old female who returns to the pain clinic today for refills of her medication. She reports a pain score of 1/10 today. Most of her pain is located in her low back and left thigh. It is worse with activity or walking that causes a burning sharp sensation, but she believes overall the medications as well as lying on her back have been beneficial. She denies constipation or daytime somnolence issues. The patient reports that she was very sick in January for at least 3 weeks. She would get out of bed to fix food, otherwise, the majority of the time she was spent in bed. She was extremely tired. She was tested for COVID that was negative. She had significant respiratory issues and reports being on two inhalers since that time. She also reports losing 15 pounds during that illness. ALLERGIES: BENADRYL, ALPRAZOLAM, TETANUS, DIPTHERIA, HALDOL, XANAX. LIST OF MEDICATIONS: Breo, Percocet 7.5/325, Prolia, Mucinex, Lipitor, Os-Luther, Nexium, Rhopressa, Vyzulta, Cozaar, bupropion, Synthroid, tizanidine, Lexapro, amlodipine, Depakote, Abilify, and aspirin. PQRS: 1. She has osteoarthritic changes in her hip and shoulder. Denies any rheumatoid arthritis. 2. Height is 5 feet 2 inches, weight is 119, which is a decrease of 10 pounds since our last visit. BMI is 21. 3. Vital signs 148/76, pulse is 100, respirations 18, oxygen sat is 98. 4. Pain score is 1/10. 5. Denies dizziness, does not need assistance with ambulation. Has not fallen in the last 3 months. 6. The patient is not on blood thinners, but does take medicine for hypertension. 7. Opioid therapy is greater than 6 weeks; therefore an opioid signed contract is on the chart. Risk assessment is moderate. Functional assessment is 70. 8. Recreational drug use, she denies. She is a former smoker and does not drink alcohol. [address] [address] PAIN MANAGEMENT CONSULTATION Name: NAIMA ROCHE Dar[place] Room #: REG CL Cele#: [id number] Admission: 04/18/20 Attend Phys: Renea Fernandez Discharge: Date of : 50 Report #: [id number] According to the prescription monitoring system, the patient is filling appropriately in a timely fashion. Her morphine milliequivalent is under the CDC guidelines. We will collect a random drug screen on the patient today. PHYSICAL EXAMINATION: GENERAL: This is alert and orientated, pleasant 69-year-old female, who reports her pain score 1/10 today. She is a good historian. HEENT: Normocephalic, atraumatic. Extraocular eye muscles are intact. She is wearing a mask. EXTREMITIES: No clubbing, no cyanosis, no edema. MUSCULOSKELETAL: Tenderness in the lumbosacral region that does radiate into her thigh. Seated straight leg raising is negative. Modified Gaenslen is positive for axial low back pain. Gait appears normal. Muscle bulk and tone equal and symmetrical in her lower extremities. Lumbar provocation testing is met with increasing pain, axial in nature. ASSESSMENT: 1. Lumbosacral spondylosis without radiculopathy. 2. Lumbar degeneration. 3. Myofascial pain. 4. Chronic intractable pain. 5. Opioid dependency. We reviewed the fact that opiate medications are being used to provide analgesia adequate to support activities of daily living, not attempting to achieve a specific pain score on the 0-10 Visual Analog Scale. The current opiate medications are providing sufficient analgesia to allow the patient to participate in activities of daily living. The patient is not exhibiting any aberrant behavior suggestive of drug diversion. The patient is not having any adverse reactions to medications. The patient is not suffering from daytime somnolence or mental acuity changes. The patient is managing opiate-induced constipation with appropriate ikxi-akn-sqtwvcg agents and dietary considerations. The patient was counseled on concern for caution with operating a motor vehicle while using opiate medications. A physical exam was performed and the patient's functional status was evaluated. All patients with back pain were advised against the bed rest greater than 4 days and were advised to return to normal activities. Pain score assessment was noted and the treatment plan was reviewed with the patient. All current medications, both prescribed and OTC were reviewed and reconciled on the electronic medical record. Tobacco screening was accomplished and smoking cessation was advised when indicated. BMI was noted and diet/exercise modification was recommended for all patients following outside normal parameters. I reviewed with the patient today their responsibilities to safeguard [place] [id number] PAIN MANAGEMENT CONSULTATION Name: NAIMA ROCHE Room #: REG [facility]#: [id number] Admission: 04/18/20 Attend Phys: Renea Fernandez Discharge: Date of : 50 Report #: [id number] prescription medications, reviewed their responsibility to utilize medications only as prescribed by the physician. They are to seek and receive pain medications only from 1 physician group ( [facility]). They are to use 1 pharmacy and keep the clinic informed if they change pharmacies. Their responsibilities include making followup visits in a timely fashion and to avoid abrupt discontinuation of medication usage. Their responsibilities further include bringing their medications (bottles from the pharmacy with residual pills) to the visit for possible confirmation of pill counts and the patient understands it is their responsibility to submit to random drug screens to ensure both that the medications prescribed are present, and that no other controlled substances are present. All prescriptions provided today were generated electronically. PLAN: 1. We discussed treatment options with the patient today. The patient does report she recently was quite ill, though she tested negative for COVID. I have encouraged her to have antibody testing to verify. There are several false negative and as well as false positive for COVID test. Due to the window of opportunity to have a positive test, we encouraged antibody testing. She is going to have lab work drawn next week and I encouraged her to talk to the night time nanny about this. 2. We did also encourage her to have the COVID vaccine when it is available to her. She had had a reaction to DIPTHERIA, TETANUS VACCINE, so she is slightly leery about having the vaccine, but is also worried about becoming sick with COVID again. She will discuss this with her primary care doctor next week as well. 3. We will continue her on her oxycodone 7.5/325 sending 3 months electronically to her pharmacy by Dr. Toan Solorzano. Urine drug screen was sent for this patient today. Dr. Toan Solorzano did see the patient as well as collaborated care. <ELECTRONICALLY SIGNED> By: Renea Fernandez 04/19/20 0719 [id number] Renea Fernandez /nt
== END ==
LOC: PAIN 06:54
PROVIDERS: ATTEND Clinical Nurse Specialist Adult Health
DX: M47.817 Spondylosis without myelopathy or radiculopathy, lumbosacral region (principal); M79.641 Pain in right hand; M79.642 Pain in left hand; R20.2 Paresthesia of skin; M51.36 Other intervertebral disc degeneration, lumbar region; M79.10 Myalgia, unspecified site; G89.29 Other chronic pain; F11.20 Opioid dependence, uncomplicated

== ENCOUNTER → 2020-05-17 | Outpatient (CLI) | payer OTHER | LOC: ULTRA 13:09 | PROVIDERS: ATTEND Internal Medicine Nephrology | DX: N18.4 Chronic kidney disease, stage 4 (severe) (principal) ==

== ENCOUNTER → 2020-07-11 | Outpatient (CLI) | payer OTHER ==
[~2020-07-11] VITALS: Ht 157.5 cm; Wt 51.4 kg
[~2020-07-11] MED LIST changes: +PEPCID20 MG PO; +PROMETHAZINE HC25 M1 PO; +SODIUM BICARBO650 M3 PO
[2020-07-11 12:42] VITALS: BP 152/76
--- NOTE | 2020-07-11 12:45 | NUR ---
Pain Clinic Assessment: 1. History of Osteoarthritis: RT SHOULDER L HIP History of Rheumatoid Arthritis: DENIES 2. Height: 5 ft. 2 in. 157.5 cm. Weight: 113.4 lb. oz. 51.438 kg. Patient's BMI: 20.7 3. Vital Signs: BP: 152/76 Pulse: 96 Resp: 16 Temp: 02 Sat: 98 ECG Mon: 4. Pain Intensity: 1 5. Fall Risk: Dizziness: Y Needs help standing or walking: N Fallen in the last 3 months: N Fall risk comments: 6. Patient on Blood Thinner: None 7. History of Hypertension: Y 8. Opioid Therapy greater than 6 weeks: Y Opiate Contract Signed: 07/15/17 9. Risk Assessment Tool Provided: MODERATE RISK 4 10. Functional Assessment Tool: 11. Recreational Drug Use: Never Drug Type: Tobacco Use: Former Smoker Tobacco Type: Amount or Packs/day: How Many Years: Alcohol Use: No Frequency: Quant:
--- NOTE | 2020-07-11 15:00 | HPC ---
[facility] [address] [place] [address] PAIN MANAGEMENT CONSULTATION Name: NAIMA ROCHE Room #: REG [facility]#: [id number] Admission: 07/11/20 Attend Phys: Renea Fernandez Discharge: Date of : 50 Report #: [id number] THIS REPORT FOR: cc: Samantha Bonilla DNP, Mary E. DNP Hocker,Renea Mcarthur DATE OF SERVICE: 07/11/2020 CHIEF COMPLAINT: Low back pain, bilateral extremity pain and paresthesias. HISTORY OF PRESENT ILLNESS: This is a 69-year-old female who returns to the pain clinic today for renewal of her medications. Today, the patient is reporting that she has had several health issues since we have last seen her. She has recently seen a kidney specialist due to elevations in her renal function. She reports seeing Dr. Foss and has recently started a low sodium diet and has changed several of her medications. She is hopeful that these changes will help her lab will be decreased, so she does not have to start dialysis. The patient also reports that she had a syncopal episode. She did not fall, but gradually lowered herself to the ground. Since that time, she has stopped her tizanidine as well as allergy medications and she has not had any further episodes. The patient reports that she has had her first COVID vaccination. At her last visit, we did discuss that she had been sick in January, but tested negative for COVID. She did have her antibodies tested and again they were negative. She is scheduled for her second vaccination next week. The patient reports no daytime somnolence or constipation issues from the medications that we prescribed and would like to continue her Percocet today. ALLERGIES: BENADRYL, ALPRAZOLAM, TETANUS, DIPHTHERIA TYPHOID, ALLOPURINOL. CURRENT LIST MEDICATIONS: Promethazine p.r.n., sodium bicarbonate, Breo, oxycodone 7.5/325 p.r.n., Prolia, Lipitor, Rhopressa, Vyzulta, Cozaar, bupropion, Synthroid, Lexapro, amlodipine, Depakote, Abilify, aspirin, Pepcid. PQRS: 1. She has osteoarthritic changes in her hip and shoulder. Denies any rheumatoid arthritis. 2. Height is 5 feet 2 inches, weight is 113, BMI is 20. 3. Vital signs; blood pressure 152/76, pulse is 96, respirations 16, oxygen sat is 98%. 4. Pain score is 1/10. 5. Complains of slight dizziness, does not need assistance with ambulation. She reports having a near fall, but did send herself to the floor without hurting herself. [address] [address] PAIN MANAGEMENT CONSULTATION Name: NAIMA ROCHE Room #: REG [facility] Cele#: [id number] Admission: 07/11/20 Attend Phys: Renea Fernandez Discharge: Date of : 50 Report #: [id number] 6. The patient is not on any blood thinners, but does have a history of hypertension. 7. Opioid therapy is greater than 6 weeks; therefore, an opioid signed contract is on the chart. Risk assessment is moderate. Functional assessment is . 8. Recreational drug use, she denies. She is a former smoker and does not drink alcohol. According to the prescription monitoring system, the patient is filling appropriately. She is due to fill her medications today. Her morphine milliequivalent is 45 MME. There is a drug screen on the chart that is appropriate as well. PHYSICAL EXAMINATION: GENERAL: This is alert and orientated 69-year-old female who is rating her pain score at 1/10. She is a good historian and her speech is fluent. HEENT: Normocephalic, atraumatic. Extraocular eye muscles are intact. She is wearing a mask. EXTREMITIES: No clubbing, no cyanosis, no edema. MUSCULOSKELETAL: Seated straight leg raising is negative. Modified Gaenslen's is positive for axial low back pain. Gait appears normal. Muscle tone and strength is equal and symmetrical in her lower extremities. Lumbar provocation testing is met with increasing pain in her lumbar region. ASSESSMENT: 1. Lumbosacral spondylosis without radiculopathy. 2. Lumbar degeneration. 3. Myofascial pain. 4. Chronic intractable pain. 5. Opioid dependency and utilizing complicated medical management of scheduled medications. We reviewed the fact that opiate medications are being used to provide analgesia adequate to support activities of daily living, not attempting to achieve a specific pain score on the 0-10 Visual Analog Scale. The current opiate medications are providing sufficient analgesia to allow the patient to participate in activities of daily living. The patient is not exhibiting any aberrant behavior suggestive of drug diversion. The patient is not having any adverse reactions to medications. The patient is not suffering from daytime somnolence or mental acuity changes. The patient is managing opiate-induced constipation with appropriate snke-lye-yzxgjhv agents and dietary considerations. The patient was counseled on concern for caution with operating a motor vehicle while using opiate medications. PLAN: 1. We discussed treatment options with the patient today. I reminded the patient not to take any dmum-lwp-yvqmuaf Advil or Aleve products since she is [address] [place] [address] PAIN MANAGEMENT CONSULTATION Name: NAIMA ROCHE Room #: REG [facility].#: [id number] Admission: 07/11/20 Attend Phys: Renea Fernandez Discharge: Date of : 50 Report #: [id number] having issues with her kidneys. The patient verifies that she does not take that medication. She will adhere to her low sodium diet and is hopeful to lower her risk of being on dialysis. 2. The patient has had the COVID vaccine without any difficulty. She is scheduled next week for her second vaccine. 3. We will continue her on her oxycodone 7.5/325. Dr. Toan Solorzano will send medications to be sent on 07/11/2020, 08/08/2020, and 09/05/2020. Time spent with the patient in consultation, reviewing recent studies and clinical notes, physical examination, correlation of findings, medical documentation and determine treatment, 12 minutes. Time spent in preparation for reviewing prescription monitoring system, review of previous records, proposed treatment options and reviewing current medication list, 5 minutes. Time spent in preparation and sending electronic prescriptions with collaborating physician, documentation of the visit and plan of treatment, 6 minutes. Total time: 23 minutes. <ELECTRONICALLY SIGNED> By: Renea Fernandez 07/11/20 1500 1335 [id number] Renea Fernandez /chrissy
== END ==
LOC: PAIN 06:53
PROVIDERS: ATTEND Clinical Nurse Specialist Adult Health
DX: M51.36 Other intervertebral disc degeneration, lumbar region (principal); M47.817 Spondylosis without myelopathy or radiculopathy, lumbosacral region; M79.604 Pain in right leg; M79.605 Pain in left leg; R20.2 Paresthesia of skin; M79.10 Myalgia, unspecified site; G89.29 Other chronic pain; F11.20 Opioid dependence, uncomplicated

== ENCOUNTER → 2020-10-03 | Outpatient (CLI) | payer OTHER ==
[~2020-10-03] VITALS: Ht 157.5 cm; Wt 51.4 kg
[~2020-10-03] MED LIST changes: -PEPCID20 MG PO
[2020-10-03 11:27] VITALS: BP 144/83
--- NOTE | 2020-10-03 11:41 | NUR ---
Pain Clinic Assessment: 1. History of Osteoarthritis: RT SHOULDER L HIP History of Rheumatoid Arthritis: DENIES 2. Height: 5 ft. 2 in. 157.5 cm. Weight: 113.4 lb. oz. 51.438 kg. Patient's BMI: 20.7 3. Vital Signs: BP: 144/83 Pulse: 97 Resp: 16 Temp: 02 Sat: 100 ECG Mon: 4. Pain Intensity: 2 WITH MEDS 5. Fall Risk: Dizziness: N Needs help standing or walking: N Fallen in the last 3 months: N Fall risk comments: 6. Patient on Blood Thinner: None 7. History of Hypertension: Y 8. Opioid Therapy greater than 6 weeks: Y Opiate Contract Signed: 07/15/17 9. Risk Assessment Tool Provided: MODERATE RISK 4 10. Functional Assessment Tool: 11. Recreational Drug Use: Never Drug Type: Tobacco Use: Former Smoker Tobacco Type: Amount or Packs/day: How Many Years: Alcohol Use: No Frequency: Quant:
--- NOTE | 2020-10-04 08:49 | HPC ---
[facility] [place] [address] PAIN MANAGEMENT CONSULTATION Name: TATYANA ROCHE Room #: REG [facility]..#: [id number] Admission: 10/03/20 Attend Phys: Renea Fernandez Discharge: Date of : 50 Report #: [id number] THIS REPORT FOR: cc: Samantha Bonilla DNP, Mary E. DNP Hocker, Amanda CNS ~ DOC #: [id number] cc: SHIVANI Guzman James E. Johnson, DO Renea Fernandez, GILDARDO DATE OF SERVICE: 10/03/2020 CHIEF COMPLAINT: Low back pain, bilateral lower extremity pain and paresthesias. HISTORY OF PRESENT ILLNESS: As you know, this is a very pleasant 69-year-old female, who returns to the pain clinic today for renewal of her medications. Today, she is reporting a pain score of 2/10 with her medications. Pain is higher with activity. Her pain is located in her low back and occasionally radiates into her left thigh. She describes this as a sharp burning sensation. Again, it is worse with activities and also lying on her right side. She reports that she has been very active in the last few days and that has increased her pain, but this morning, she is doing quite well with her current regimen. She would like to continue her oxycodone and denies any significant constipation or daytime somnolence as a result of her medications. Tatyana does report she has followed up with the kidney specialist and they continue to adjust her medications and she has adjusted her diet accordingly, so she is hopeful that she will not need any dialysis in the future. She also reports having her COVID vaccination, though her building that she lives in is still allowing her visitors. ALLERGIES: BENADRYL, ALPRAZOLAM, TETANUS DIPHTHERIA TYPHOID AND ALLOPURINOL. CURRENT LIST OF MEDICATIONS: Oxycodone 7.5/325 q.i.d. p.r.n., Nexium, promethazine p.r.n., sodium bicarbonate, Breo Ellipta, guaifenesin p.o., Prolia, atorvastatin, Os-Luther, Vyzulta, Cozaar, bupropion, Synthroid, Lexapro, amlodipine, Depakote, Abilify and aspirin. PQRS: 1. She has osteoarthritis affecting her right shoulder, left hip and back. Denies any rheumatoid arthritis. Does suffer from osteoporosis though. Height is 5 feet 2 inches, weight is 113. BMI is 20. 2. Vital signs 144/83, pulse 97, respirations 16, oxygen sat is 100. 3. Pain score is 2/10. 4. Denies dizziness, does not need help walking or standing, has not fallen in the last 3 months. [facility] [address] [place] [address] PAIN MANAGEMENT CONSULTATION Name: TATYANA ROCHE Room #: REG [facility] Cele#: [id number] Admission: 10/03/20 Attend Phys: Renea Fernandez Discharge: Date of : 50 Report #: [id number] 5. The patient is not on any blood thinners, but does take medicine for hypertension. 6. Opiate therapy is greater than six weeks; therefore, an opioid signed contract is on the chart. Risk assessment is moderate. Functional assessment is . 7. Recreational drug use, she denies. She is a former smoker and does not use alcohol. According to the prescription monitoring system, she is filling appropriately in a timely fashion. Her morphine milliequivalent 45 MME per day, well below the CDC guidelines. PHYSICAL EXAMINATION: GENERAL: This is alert and orientated 69-year-old female, who appears her stated age, rating her pain score today at 2/10. HEENT: Normocephalic, atraumatic. Extraocular eye muscles are intact. She is wearing a mask. EXTREMITIES: No clubbing, no cyanosis, no edema. MUSCULOSKELETAL: She has a slightly kyphotic female, modified ___ is positive for axial low back pain. She has a normal gait. Lower extremity strength is symmetrical at 5/5. Lumbar provocation testing is met with increasing pain in her lumbar region. Seated straight leg raising is negative. IMPRESSION: 1. Lumbar sacral spondylosis with radiculopathy. 2. Lumbar degeneration. 3. Chronic intractable pain. 4. Opioid dependency and utilization of scheduled opioid medications. PLAN: 1. We discussed treatment options with the patient today. We will continue her on her oxycodone 7.5/325, #120. She does find it has been beneficial in controlling her pain. Three months of medication will be sent electronically by Dr. Toan Solorzano. 2. We did discuss spacing out her activities as to not overdo it and cause increased pain. Therefore, she will have better analgesia control with her current regimen. The patient verbalizes understanding. 3. We also discussed increasing her fluid intake to make sure she feels well hydrated and continue to follow her renal diet. Time spent with the patient in consultation, reviewing pertinent imaging, reviewing recent studies and clinical notes, physical examination and correlation of findings and medical documentation to determine possible treatments 12 minutes. Time spent in preparation for appointment reviewing, prescription monitoring system reports, reviewing previous records and proposed treatment options, reviewing current medications 5 minutes. Time spent [facility] [address] [place] [address] PAIN MANAGEMENT CONSULTATION Name: TATYANA ROCHE Room #: [facility] Cele#: [id number] Admission: 10/03/20 Attend Phys: Renea Fernandez Discharge: Date of : 50 Report #: [id number] preparing and sending electronic prescriptions with collaborating physician, Dr. Toan Solorzano, documentation of visit and plan of treatment is 5 minutes. Total time spent 22 minutes. GILDARDO Phillip/JOSE <ELECTRONICALLY SIGNED> By: Renea Fernandez 10/04/20 0849 [id number] [id number] Renea Fernandez /nt
== END ==
LOC: PAIN 10:39
PROVIDERS: ATTEND Clinical Nurse Specialist Adult Health
DX: M47.27 Other spondylosis with radiculopathy, lumbosacral region (principal); G89.4 Chronic pain syndrome; Z79.899 Other long term (current) drug therapy

== ENCOUNTER → 2020-12-26 | Outpatient (CLI) | payer OTHER ==
[~2020-12-26] VITALS: Ht 157.5 cm; Wt 53.5 kg
[2020-12-26 10:52] VITALS: BP 148/76
--- NOTE | 2020-12-26 11:07 | NUR ---
Pain Clinic Assessment: 1. History of Osteoarthritis: RT SHOULDER L HIP History of Rheumatoid Arthritis: DENIES 2. Height: 5 ft. 2 in. 157.5 cm. Weight: 118.0 lb. oz. 53.524 kg. Patient's BMI: 21.6 3. Vital Signs: BP: 148/76 Pulse: 98 Resp: 16 Temp: 02 Sat: 99 ECG Mon: 4. Pain Intensity: 2 WITH MEDS 5. Fall Risk: Dizziness: N Needs help standing or walking: N Fallen in the last 3 months: N Fall risk comments: 6. Patient on Blood Thinner: None 7. History of Hypertension: Y 8. Opioid Therapy greater than 6 weeks: Y Opiate Contract Signed: 07/15/17 9. Risk Assessment Tool Provided: MODERATE RISK 4 10. Functional Assessment Tool: 11. Recreational Drug Use: Never Drug Type: Tobacco Use: Former Smoker Tobacco Type: Amount or Packs/day: How Many Years: Alcohol Use: No Frequency: Quant:
--- NOTE | 2020-12-27 14:10 | HPC ---
[facility] [address] [place] [address] PAIN MANAGEMENT CONSULTATION Name: NAIMA ROCHE Room #: REG [facility]..#: [id number] Admission: 12/26/20 Attend Phys: Renea Fernandez Discharge: Date of : 50 Report #: [id number] THIS REPORT FOR: cc: Samantha Bonilla DNP, Mary E. DNP Hocker,Renea AMAYA ~ cc: SHIVANI Guzman James E. Johnson, DO DATE OF SERVICE: 12/26/2020 CHIEF COMPLAINT: Low back pain, bilateral lower extremity pain and paresthesias. HISTORY OF PRESENT ILLNESS: This is a pleasant 70-year-old female who returns to the pain clinic today for renewal of her oxycodone. Today, the patient reports that it is beneficial in helping relieve her pain in her low back and legs, stating today, her pain is at 2/10. She describes her pain as a burning, sharp sensation that is worse with activity or prolonged walking. Overall, she believes resting and taking her medications are beneficial in decreasing her pain. The patient does report falling and hitting her back and her head in October. She did not seek medical attention. She was thankful she did not break any bones and just had a tender back for a while. ALLERGIES: BENADRYL, ALPRAZOLAM, TETANUS, DIPHTHERIA, TYPHOID, ALLOPURINOL. CURRENT LIST OF MEDICATIONS: Oxycodone 7.5/325 p.r.n., Nexium, promethazine, sodium bicarbonate p.o., Prolia, Lipitor, vitamin D3, Rhopressa, Vyzulta, losartan, Wellbutrin, Synthroid, Lexapro, amlodipine, Depakote, Abilify, aspirin. PQRS: 1. She has osteoarthritic issues in her shoulders and hips. Denies any rheumatoid arthritis. 2. Height is 5 feet 2 inches, weight is 118, BMI is 21. 3. Vital signs: 148/76, pulse is 98, respirations 16, oxygen sat is 99%. 4. Pain score is 2/10. 5. Denies dizziness, does not need help walking or standing, has not fallen in the last three months. She denies any blood thinners, but does take medication for hypertension. Opioid therapy is greater than 6 weeks; therefore, an opioid signed contract is on the chart. 6. Risk assessment is moderate. Functional assessment: 11/25. 7. Recreational drug use, she denies. She is a former smoker and does not drink alcohol. According to the prescription monitoring system, the patient is filling [address] [address] PAIN MANAGEMENT CONSULTATION Name: NAIMA ROCHE Darby Room #: REG [facility] M..#: [id number] Admission: 12/26/20 Attend Phys: Renea Fernandez Discharge: Date of : 50 Report #: [id number] appropriately. Her morphine mEq 45 MME. She is due to fill her medications. PHYSICAL EXAMINATION: GENERAL: This is alert and orientated 70-year-old female who appears her stated age, rating her pain score today at 2/10. HEENT: Normocephalic, atraumatic. Extraocular eye muscles are intact. She is wearing a mask in compliance with COVID. EXTREMITIES: No clubbing, no cyanosis, no edema. MUSCULOSKELETAL: Roshan test is negative. Modified ganglion is positive for axial low back pain. Seated straight leg raising is negative. Gait appears normal. IMPRESSION: 1. Lumbar sacral spondylosis with radiculopathy. 2. Lumbar degeneration. 3. Chronic intractable pain. 4. Opioid dependency utilizing scheduled opioid medications. We reviewed the fact that opiate medications are being used to provide analgesia adequate to support activities of daily living, not attempting to achieve a specific pain score on the 0-10 Visual Analog Scale. The current opiate medications are providing sufficient analgesia to allow the patient to participate in activities of daily living. The patient is not exhibiting any aberrant behavior suggestive of drug diversion. The patient is not having any adverse reactions to medications. The patient is not suffering from daytime somnolence or mental acuity changes. The patient is managing opiate-induced constipation with appropriate glzo-wdi-fmsmtum agents and dietary considerations. The patient was counseled on concern for caution with operating a motor vehicle while using opiate medications. PLAN: We discussed treatment options with the patient today. The patient feels her oxycodone is beneficial in helping relieve a significant portion of her pain and is thankful to have this. Medication allows her to be as active as she is able. Today, we will have Dr. Toan Solorzano sent 3 months of medication #120 pills of oxycodone 7.5/325. The patient reports current creatinine is decreased from her last visit. She does continue to follow up with nurse practitioner on a monthly basis regarding her kidney function, continues to be well hydrated and is thankful that it has decreased. She does continue on a renal diet as well. Time spent on patient in consultation, reviewing pertinent imaging, reviewing recent studies and clinical notes and physical examination and correlation of findings and medical documentation to determine possible treatment options [address] [address] PAIN MANAGEMENT CONSULTATION Name: NAIMA ROCHE Room #: REG [facility]#: [id number] Admission: 12/26/20 Attend Phys: Renea Fernandez Discharge: Date of : 50 Report #: [id number] Time spent and preparation for appointment reviewing prescription monitoring system reports, reviewing previous records and proposed treatment options and current medications, 6 minutes. Time spent preparing and sending electronic prescriptions as well as collaborating physician, Dr. Toan Solorzano, documentation of visit and plan of treatment, 6 minutes. Total time spent 25 minutes. <ELECTRONICALLY SIGNED> By: Renea Fernandez 12/27/20 1410 1150 1241 Renea Fernandez /nt
== END ==
LOC: PAIN 10:16
PROVIDERS: ATTEND Clinical Nurse Specialist Adult Health
DX: M47.27 Other spondylosis with radiculopathy, lumbosacral region (principal); M51.16 Intervertebral disc disorders with radiculopathy, lumbar region; G89.4 Chronic pain syndrome; Z79.891 Long term (current) use of opiate analgesic; Z79.899 Other long term (current) drug therapy

== ENCOUNTER → 2021-03-20 | Outpatient (CLI) | payer OTHER ==
[~2021-03-20] VITALS: Ht 157.5 cm; Wt 53.5 kg
[2021-03-20 10:47] VITALS: BP 149/72
--- NOTE | 2021-03-20 10:49 | NUR ---
Pain Clinic Assessment: 1. History of Osteoarthritis: RT SHOULDER L HIP History of Rheumatoid Arthritis: DENIES 2. Height: 5 ft. 2 in. 157.5 cm. Weight: 118.0 lb. oz. 53.524 kg. Patient's BMI: 21.6 3. Vital Signs: BP: 149/72 Pulse: 103 Resp: 16 Temp: 02 Sat: 98 ECG Mon: 4. Pain Intensity: 3-4 5. Fall Risk: Dizziness: N Needs help standing or walking: N Fallen in the last 3 months: N Fall risk comments: 6. Patient on Blood Thinner: None 7. History of Hypertension: Y 8. Opioid Therapy greater than 6 weeks: Y Opiate Contract Signed: 07/15/17 9. Risk Assessment Tool Provided: MODERATE RISK 4 10. Functional Assessment Tool: 11. Recreational Drug Use: Never Drug Type: Tobacco Use: Former Smoker Tobacco Type: Amount or Packs/day: How Many Years: Alcohol Use: No Frequency: Quant:
--- NOTE | 2021-03-21 15:00 | HPC ---
[facility] [address] [place] [address] PAIN MANAGEMENT CONSULTATION Name: NAIMA ROCHE Room #: REG [facility].#: [id number] Admission: 03/20/21 Attend Phys: Renea Fernandez Discharge: Date of : 50 Report #: [id number] THIS REPORT FOR: cc: Samantha Bonilla DNP, Mary E. DNP Hocker,Renea AMAYA ~ cc: SHIVANI Guzman, Toan Solorzano DO, Desirae Peterson MD DATE OF SERVICE: 03/20/2021 CHIEF COMPLAINT: Low back pain, bilateral lower extremity pain, and paresthesias. HISTORY OF PRESENT ILLNESS: As you know, this is a pleasant 70-year-old female, who returns today for renewal of her oxycodone medication. Today, she is rating her pain score as 3-4. She believes it is slightly higher than her average in her lower back. She reports she is trying to be more active and this has caused an increase in pain. She is describing it as a burning, sharp sensation. Her pain usually is relieved with her medication as well as lying down. The patient also reports that she has significant stress in her home situation currently. She did detail this in great length today. This has aggravated some of her pain she feels as well. Overall, she would like to continue on her opioid medications and denies any significant constipation or daytime somnolence as a result of this medication. ALLERGIES: BENADRYL, ALPRAZOLAM, TETANUS, DIPHTHERIA, TOXOID, AND HALCION. CURRENT LIST OF MEDICATIONS: Oxycodone 7.5/325, Nexium, promethazine, sodium bicarbonate, Breo, Prolia, atorvastatin, Os-Luther, Rhopressa, losartan, Wellbutrin, Synthroid, Lexapro, amlodipine, Depakote, Abilify, and aspirin. PQRS: 1. She has arthritic changes in her shoulders, hips and back. Denies any rheumatoid arthritis. Height is 5 feet 2 inches, weight is 118, BMI is 21. 2. Vital Signs: 149/72, pulse is 103, respirations 16, oxygen sat is 98%. 3. Pain score is 3-4. 4. Denies dizziness, does not need help walking or standing, has not fallen in the last 3 months. 5. The patient is not on any blood thinners, but does take medicine for hypertension. 6. Opioid therapy is greater than 6 weeks; therefore, an opioid signed contract is on the chart. 7. Risk assessment is moderate. Functional assessment: . 8. Recreational drug use, she denies. She is a former smoker and does not drink alcohol. According to the prescription monitoring system, [place] [address] PAIN MANAGEMENT CONSULTATION Name: NAIMA ROCHE [id number] Admission: 03/20/21 Attend Phys: Renea Fernandez Discharge: Date of : 50 Report #: [id number] medications this week. She is filling them in a timely fashion. Her morphine milliequivalent according to the CDC guidelines is 45. We will collect a random drug screen on this patient today as well. She reports taking her medication today. PHYSICAL EXAMINATION: GENERAL: This is alert and orientated, pleasant 70-year-old female who is reporting a pain score today at 3-4. She is a good historian. HEENT: Normocephalic, atraumatic. Extraocular eye muscles are intact. She is wearing a mask for COVID precautions. EXTREMITIES: No clubbing, no cyanosis. No appreciable edema. MUSCULOSKELETAL: She has tenderness in the lumbar, sacral region that radiates into her buttocks. Straight leg raising is negative today. Roshan's test is negative. Modified ganglion is positive for axial low back pain. She has a slightly antalgic gait. IMPRESSION: 1. Lumbar sacral spondylosis without radiculopathy. 2. Lumbar degeneration. 3. Chronic intractable pain. 4. Opioid dependency utilizing scheduled opioid medications. achieve a specific pain, opiate medications. We reviewed the fact that opiate medications are being used to provide analgesia adequate to support activities of daily living, not attempting to achieve a specific pain score on the 0-10 Visual Analog Scale. The current opiate medications are providing sufficient analgesia to allow the patient to participate in activities of daily living. The patient is not exhibiting any aberrant behavior suggestive of drug diversion. The patient is not having any adverse reactions to medications. The patient is not suffering from daytime somnolence or mental acuity changes. The patient is managing opiate-induced constipation with appropriate sxgh-wot-bsxkkty agents and dietary considerations. The patient was counseled on concern for caution with operating a motor vehicle while using opiate medications. A physical exam was performed and the patient's functional status was evaluated. All patients with back pain were advised against the bed rest greater than 4 days and were advised to return to normal activities. Pain score assessment was noted and the treatment plan was reviewed with the patient. All current medications, both prescribed and OTC were reviewed and reconciled on the electronic medical record. Tobacco screening was accomplished and smoking cessation was advised when indicated. BMI was noted and diet/exercise modification was recommended for all patients following outside normal parameters. I reviewed with the patient today their responsibilities to safeguard [facility] [address] [place] [address] PAIN MANAGEMENT CONSULTATION Name: NAIMA ROCHE Room #: REG [facility]#: [id number] Admission: 03/20/21 Attend Phys: Renea JOSE LUIS Fernandez Discharge: Date of : 50 Report #: [id number] prescription medications, reviewed their responsibility to utilize medications only as prescribed by the physician. They are to seek and receive pain medications only from 1 physician group ( [facility]). They are to use 1 pharmacy and keep the clinic informed if they change pharmacies. Their responsibilities include making followup visits in a timely fashion and to avoid abrupt discontinuation of medication usage. Their responsibilities further include bringing their medications (bottles from the pharmacy with residual pills) to the visit for possible confirmation of pill counts and the patient understands it is their responsibility to submit to random drug screens to ensure both that the medications prescribed are present, and that no other controlled substances are present. All prescriptions provided today were generated electronically. PLAN: 1. We discussed treatment options with the patient today. Overall, the patient believes that her medication regimen is beneficial allowing her to be as active as she is able with minimal side effects of her medications. We will continue her on her oxycodone 7.5/325, #120. These will be sent electronically by Dr. Toan Solorzano for today, 4-week, and 8-week. 2. We will collect a random drug screen on this patient today since it has been a year. The patient reports taking her medications this morning. 3. The patient has had her COVID booster. Her facility that she lives with in is open to have visitors and she does see her family now. She is thankful for that since they had been lockdown longer than other places had been. 4. The patient will return in 3 months. Time spent with the patient in consultation, reviewing recent studies and clinical notes, physical examination and correlation of findings, medical documentation to determine treatment options, 14 minutes. Time spent preparing and sending electronic prescriptions, reviewing prescription monitoring system, reviewing previous records and proposed treatment options and reviewing current medications and collecting a random drug screen, 6 minutes. Time spent in preparation for appointment preparation and sending electronic prescriptions with collaborating physician, Dr. Toan Solorzano, documentation of visit and plan of treatment, 5 minutes. Total time spent 25 minutes. <ELECTRONICALLY SIGNED> By: Renea Fernandez 03/21/21 1500 [id number] Renea Fernandez /nt
== END ==
LOC: PAIN 10:20
PROVIDERS: ATTEND Clinical Nurse Specialist Adult Health
DX: G89.29 Other chronic pain (principal); M47.816 Spondylosis without myelopathy or radiculopathy, lumbar region; M47.817 Spondylosis without myelopathy or radiculopathy, lumbosacral region; M79.661 Pain in right lower leg; M79.662 Pain in left lower leg; F11.20 Opioid dependence, uncomplicated; Z88.8 Allergy status to other drugs, medicaments and biological substances; Z79.899 Other long term (current) drug therapy; Z79.82 Long term (current) use of aspirin

== ENCOUNTER → 2021-06-12 | Outpatient (CLI) | payer OTHER ==
[~2021-06-12] VITALS: Ht 157.5 cm; Wt 51.2 kg
[2021-06-12 11:10] VITALS: BP 156/79
[2021-06-12 11:13] VITALS: BP 156/79
--- NOTE | 2021-06-12 11:25 | NUR ---
Pain Clinic Assessment: 1. History of Osteoarthritis: RT SHOULDER L HIP History of Rheumatoid Arthritis: DENIES 2. Height: 5 ft. 2 in. 157.5 cm. Weight: 112.8 lb. oz. 51.166 kg. Patient's BMI: 20.6 3. Vital Signs: BP: 156/79 Pulse: 102 Resp: 16 Temp: 02 Sat: 98 ECG Mon: 4. Pain Intensity: 0 5. Fall Risk: Dizziness: N Needs help standing or walking: N Fallen in the last 3 months: N Fall risk comments: 6. Patient on Blood Thinner: None 7. History of Hypertension: Y 8. Opioid Therapy greater than 6 weeks: Y Opiate Contract Signed: 07/15/17 9. Risk Assessment Tool Provided: MODERATE RISK 4 10. Functional Assessment Tool: 11. Recreational Drug Use: Never Drug Type: Tobacco Use: Former Smoker Tobacco Type: Amount or Packs/day: How Many Years: Alcohol Use: No Frequency: Quant:
== END ==
LOC: PAIN 10:01
PROVIDERS: ATTEND Clinical Nurse Specialist Adult Health
DX: M51.36 Other intervertebral disc degeneration, lumbar region (principal); M47.816 Spondylosis without myelopathy or radiculopathy, lumbar region; F11.20 Opioid dependence, uncomplicated; F31.9 Bipolar disorder, unspecified; Z88.8 Allergy status to other drugs, medicaments and biological substances; Z79.899 Other long term (current) drug therapy